=== PATIENT | male | born 1930 | race Caucasian/White ===

== ENCOUNTER 2016-11-14 16:44 | Inpatient (IN) | payer MEDICARE ==
[~2016-11-14] VITALS: Ht 177.8 cm; Wt 82.6 kg
--- NOTE | 2016-11-14 17:06 | PHYS DOC ---
Adult General Chief Complaint Chief Complaint: LOWER EXTREMITY EDEMA HPI HPI Patient is a 86 year old M who presents with increased shortness of breath and swelling per his PCP Dr. Bullock. Patient was sent in by his PCP for possible CHF exacerbation anasarca. Patient is on oxygen continuously 2 L however he complains of no shortness of breath or chest pain. Patient also denies any increased swelling in the lower extremity bilaterally. Patient has no complaints and does not understand why he is in the emergency room. Pertinent exam findings: Heart 3/6 JENNIFER, irreg- irreg Lungs had decreased breath sounds bilaterally +2 pitting edema lower extremity bilaterally Stage 2-3 decubitus ulcer, 2 lesions one on the left and right buttocks approximately quarter in size for age ED course: Patient was seen and examined emergency room CBC, CMP, BMP, EKG, chest x-ray were ordered 1723: EKG shows A. fib rate of 57 no STEMI 180:Discussed CC/HP/PMH with Dr. Bullock and recommends admit and a blood gas and a cardiology consult 182: Updated patient and plan to admit for further evaluation and management. Pertinent results: 1758: Troponin 0.068 BNP 4975 Creatinine 1.5 Chest ray shows CHF MDM: After reviewing the chart, CC/HPI/PMH, physical exam, [lab results], [ radiological results], I believe the patient having acute CHF exacerbation requiring inpatient admission with IV Lasix. I do not believe the patient having a STEMI despite having an elevated troponin which is most likely elevated due to CHF. Review of Systems Review of Systems GEN: Denies fevers, chills, sweats HEENT: Denies blurred vision, sore throat CV: Denies chest pain RESP: Denies shortness of air, cough GI: Denies n/v/d NEURO: Denies confusion, dizziness MSK: Denies weakness, joint pain/swelling Current Medications Current Medications Current Medications Medications (Trade) Dose Ordered Sig/Dinah Start Time Stop Time Status Last Admin Dose Admin Aspirin (Children'S Aspirin) 324 mg 1X ONCE 11/14/16 18:15 11/14/16 18:16 DC 11/14/16 18:13 324 MG Furosemide (Lasix) 80 mg 1X ONCE 11/14/16 18:15 11/14/16 18:16 UNV Morphine Sulfate 4 mg PRN Q2HR PRN 11/14/16 18:15 11/15/16 18:14 UNV Ondansetron HCl (Zofran) 4 mg PRN Q8HRS PRN 11/14/16 18:15 11/15/16 18:14 Allergies Allergies Allergies Coded Allergies Type Severity Reaction Last Updated Verified Penicillins Allergy Intermediate 11/14/16 Yes hydrocodone Allergy Intermediate 11/14/16 Yes Physical Exam Physical Exam GEN.: No apparent distress. Alert and oriented. HEENT: Head is normocephalic, atraumatic NECK: Supple. LUNGS: Decreased breath sounds bilaterally. HEART: irreg-irreg, 3/6 JENNIFER. Peripheral pulses intact ABDOMEN: Soft, nontender. Positive bowel sounds. EXTREMITIES: Without any cyanosis. +2 pitting Edema lower extremity bilaterally NEUROLOGIC: Normal speech, normal tone PSYCHIATRIC: Normal affect, normal mood. SKIN: Stage 2-3 decubitus ulcer, 2 lesions one on the left and right buttocks approximately quarter in size for age Current Patient Data Vital Signs Vital Signs Date Time Temp Pulse Resp B/P (MAP) Pulse Ox O2 Delivery O2 Flow Rate FiO2 11/14/16 16:44 98.1 60 18 122/80 (94) 94 Nasal Cannula 3.0 98.1 Lab Values Laboratory Tests Test 11/14/16 17:05 White Blood Count 5.4 x10^3/uL (4.0-11.0) Red Blood Count 3.11 x10^6/uL (4.30-5.70) L Hemoglobin 9.5 g/dL (13.0-17.5) L Hematocrit 29.2 % (39.0-53.0) L Mean Corpuscular Volume 94 fL (79-100) Mean Corpuscular Hemoglobin 31 pg (25-35) Mean Corpuscular Hemoglobin Concent 33 g/dL (31-37) Red Cell Distribution Width 18.2 % (11.5-14.5) H Platelet Count 220 x10^3/uL (140-400) Neutrophils (%) (Auto) 66 % (31-73) Lymphocytes (%) (Auto) 18 % (24-48) L Monocytes (%) (Auto) 14 % (0-9) H Eosinophils (%) (Auto) 2 % (0-3) Basophils (%) (Auto) 1 % (0-3) Neutrophils # (Auto) 3.6 x10^3uL (1.8-7.7) Lymphocytes # (Auto) 1.0 x10^3/uL (1.0-4.8) Monocytes # (Auto) 0.7 x10^3/uL (0.0-1.1) Eosinophils # (Auto) 0.1 x10^3/uL (0.0-0.7) Basophils # (Auto) 0.0 x10^3/uL (0.0-0.2) Prothrombin Time 14.4 SEC (11.7-14.0) H Prothrombin Time INR 1.2 (0.8-1.1) H Sodium Level 142 mmol/L (136-145) Potassium Level 4.6 mmol/L (3.5-5.1) Chloride Level 100 mmol/L (98-107) Carbon Dioxide Level 43 mmol/L (21-32) H Anion Gap -1 (6-14) L Blood Urea Nitrogen 52 mg/dL (8-26) H Creatinine 1.5 mg/dL (0.7-1.3) H Estimated GFR (Cockcroft-Gault) 44.5 BUN/Creatinine Ratio 35 (6-20) H Glucose Level 161 mg/dL (70-99) H Calcium Level 8.2 mg/dL (8.5-10.1) L Total Bilirubin 0.7 mg/dL (0.2-1.0) Aspartate Amino Transferase (AST) 23 U/L (15-37) Alanine Aminotransferase (ALT) 19 U/L (16-63) Alkaline Phosphatase 93 U/L (46-116) Troponin I Quantitative 0.068 ng/mL (0.000-0.055) TT-Umg-M-Type Natriuretic Peptide 4975 pg/mL (0-449) H Total Protein 6.6 g/dL (6.4-8.2) Albumin 2.2 g/dL (3.4-5.0) L Albumin/Globulin Ratio 0.5 (1.0-1.7) L Lipase 73 U/L (73-393) Laboratory Tests 11/14/16 17:05 Laboratory Tests 11/14/16 17:05 EKG EKG 1723: EKG shows A. fib rate of 57 no STEMI[] Radiology/Procedures Radiology/Procedures [] Course & Med Decision Making Course & Med Decision Making Pertinent Labs and Imaging studies reviewed. (See chart for details) [] Dragon Disclaimer Dragon Disclaimer This electronic medical record was generated, in whole or in part, using a voice recognition dictation system. Departure Departure Impression: Primary Impression: CHF exacerbation Disposition: ADMITTED INPATIENT Admitting Physician: Celeste Bullock Condition: STABLE Problem Qualifiers Primary Impression: CHF exacerbation Congestive heart failure type: unspecified congestive heart failure type Qualified Codes: I50.9 - Heart failure, unspecified GUADALUPE NOGUERA DO Nov 14, 2016 17:06
[2016-11-14 17:12] LABS: BASO % 1 % (0-3); EOS % 2 % (0-3); HEMATOCRIT 29.2 % (39.0-53.0); HEMOGLOBIN 9.5 g/dL (13.0-17.5); LYMPH % 18 % (24-48); MEAN CORPUSCULAR HEMOGLOBIN 31 pg (25-35); MEAN CORPUSCULAR HGB CONC 33 g/dL (31-37); MEAN CORPUSCULAR VOLUME 94 fL (79-100); MONO % 14 % (0-9); NEUT % 66 % (31-73); PLATELET COUNT 220 x10^3/uL (140-400); RED BLOOD COUNT 3.11 x10^6/uL (4.30-5.70); RED CELL DISTRIBUTION WIDTH 18.2 % (11.5-14.5); WHITE BLOOD COUNT 5.4 x10^3/uL (4.0-11.0)
[2016-11-14 17:22] LABS: INR 1.2 (0.8-1.1); PROTHROMBIN TIME PATIENT 14.4 SEC (11.7-14.0)
[2016-11-14 17:27] LABS: CALCIUM 8.2 mg/dL (8.5-10.1); CREATININE 1.5 mg/dL (0.7-1.3); GFR 44.5; POTASSIUM 4.6 mmol/L (3.5-5.1)
[2016-11-14 17:33] LABS: ALBUMIN 2.2 g/dL (3.4-5.0); ALBUMIN/GLOBULIN RATIO 0.5 (1.0-1.7); TOTAL BILIRUBIN 0.7 mg/dL (0.2-1.0); TOTAL PROTEIN 6.6 g/dL (6.4-8.2)
[2016-11-14] MEDS ORDERED: MORPHINE SULFATE 4 MG/ML DISP.SYRIN. IV PRN (18:15)
[2016-11-14] MEDS ORDERED: FUROSEMIDE 40 MG TABLET. PO ONE (18:15)
[2016-11-14] MEDS ORDERED: ASPIRIN CHEWABLE 81 MG TABLET. PO ONE (18:15)
[2016-11-14] MEDS ORDERED: ONDANSETRON PF 4 MG/2 ML VIAL. IV PRN (18:15)
[2016-11-14] MEDS ORDERED: ATOR20TA58 PO (19:59)
[2016-11-14] MEDS ORDERED: [UNRECOGNIZED DRUG - CODE] PO (19:59)
[2016-11-14] MEDS ORDERED: TAMS0.4C2 PO (19:59)
[2016-11-14] MEDS ORDERED: DONE10TA7 PO (19:59)
[2016-11-14] MEDS ORDERED: ACET325T9 PO (19:59)
[2016-11-14] MEDS ORDERED: ASPI81TA44 PO (19:59)
[2016-11-14] MEDS ORDERED: MULT1TAB52 PO (19:59)
[2016-11-14] MEDS ORDERED: CHOL10003 PO (19:59)
[2016-11-14] MEDS ORDERED: POLY17PO29 PO (19:59)
[2016-11-14] MEDS ORDERED: MAGN400O7 PO (19:59)
[2016-11-14] MEDS ORDERED: OXYC5TAB PO (19:59)
[2016-11-14] MEDS ORDERED: ENOX40DI SQ (19:59)
[2016-11-14 20:11] VITALS: BP 138/63
[2016-11-14 23:42] LABS: HCO3 ABG 43 mmol/L (21-28); PH ABG 7.35 (7.35-7.45); PO2 ABG 93 mmHg (65-108); SAT O2 ABG 97 % (92-99)
[2016-11-14 23:45] VITALS: BP 121/44
[2016-11-14 23:46] LABS: FIO2 ABG 32; PCO2 ABG 79 mmHg (35-46)
[2016-11-15] VITALS (7 sets, daily range): BP systolic 105–133; BP diastolic 39–62
--- NOTE | 2016-11-15 03:05 | ACF ---
Admission Forms Criteria HEART FAILURE: COMMON COMPLICATIONS Clinical Indications for Inpatient Care (Place 'X' for any and all applicable criteria): Ongoing inpatient care may be indicated for heart failure with 1 or more of the following (1)(2)(3)(4)(5)(6)(7)(8): [ ]I. New-onset heart failure [ ]II. Acute cardiac ischemia causing or associated with failure [ ]III. Ongoing need for care for primary condition requiring frequent therapy adjustments because of changes in cardiac function (eg, drug dosage changes for drugs that are renally metabolized) [X]IV. Complications of heart failure, including 1 or more of the following: [ ]a) Hemodynamic instability [ ]b) Pericardial effusion [ ]c) Symptomatic pleural effusion [ ]d) Hypoxemia [ ]e) Tachypnea [X]f) Dyspnea [ ]g) Syncope [ ]h) Altered mental status [ ]i) Acute renal insufficiency that is severe (reduction of more than 50% in estimated glomerular filtration rate from baseline) or progressive reduction of more than 25% in estimated glomerular filtration rate from baseline, with creatinine continuing to rise) [ ]j) Debilitating anasarca (eg tissue breakdown with infection, inability to void due to edema) (E) [ ]k) Clinically significant metabolic abnormalities due to heart failure (eg, new-onset metabolic acidosis) Extended stay may be needed until ALL of the following are present (1)(3)(18)(41 )(55) [ ]a) Hemodynamic stability [ ]b) Stable and effective diuretic regimen established (or patient on stable dialysis regimen if in chronic renal failure) [ ]c) Volume status acceptable on oral medication [ ]d) Breathing comfortably at rest [ ]e) Saturation of arterial oxygen greater than 90% or at acceptable baseline [ ]f) Pulmonary edema absent or improved [ ]g) Peripheral or sacral edema absent or improved [ ]h) Renal function stable and manageable at a lower level of care [ ]i) Complications (eg, pleural effusion) resolved or manageable at a lower level of care [ ]g) Patient or caregiver has received written discharge instructions or educational material addressing activity level, diet, discharge medications, follow-up appointment, weight monitoring, and what to do if symptoms worsen.(25)(26) The original [facility] [facility] [employer] content created by [facility] [employer] has been revised. The portions of the content which have been revised are identified through the use of italic text, and [facility] has neither reviewed nor approved the modified material.All other unmodified content is copyright [facility]. Please see references footnoted in the original [facility] edition 2015 Admission Criteria Met?: Yes WARREN ADVIDSON Nov 15, 2016 03:05
[2016-11-15 06:18] LABS: BASO # 0.1 x10^3/uL (0.0-0.2); BASO % 1 % (0-3); EOS % 2 % (0-3); HEMATOCRIT 33.6 % (39.0-53.0); HEMOGLOBIN 10.3 g/dL (13.0-17.5); LYMPH # 1.6 x10^3/uL (1.0-4.8); LYMPH % 22 % (24-48); MEAN CORPUSCULAR HEMOGLOBIN 30 pg (25-35); MEAN CORPUSCULAR HGB CONC 31 g/dL (31-37); MEAN CORPUSCULAR VOLUME 96 fL (79-100); MONO % 11 % (0-9); NEUT % 65 % (31-73); PLATELET COUNT 262 x10^3/uL (140-400); RED CELL DISTRIBUTION WIDTH 18.2 % (11.5-14.5); WHITE BLOOD COUNT 7.3 x10^3/uL (4.0-11.0)
[2016-11-15 06:44] LABS: CALCIUM 8.2 mg/dL (8.5-10.1); CREATININE 1.4 mg/dL (0.7-1.3); GFR 48.2; POTASSIUM 5.2 mmol/L (3.5-5.1)
--- NOTE | 2016-11-15 08:24 | EKG ---
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
--- NOTE | 2016-11-15 09:09 | RAD ---
Portable chest, 11/14/2016: History: Shortness of breath Comparison is made to a study from 10/12/2005. There as been a previous median sternotomy. The heart is mildly enlarged. The pulmonary vascularity is poorly defined. There are moderate streaky bibasilar pulmonary opacities. Similar findings were present on the previous exam. No definite pleural fluid is evident in this AP projection. There is no evidence of pneumothorax. IMPRESSION: 1. Mild cardiomegaly with mild vascular congestion. 2. Moderate streaky bibasilar opacities suggesting recurrent atelectasis/infiltrate, although a component of scarring is likely.
--- NOTE | 2016-11-15 11:23 | PDOC1 ---
History and Physical Date of Admission Date of Admission DATE: 11/15/16 TIME: 10:59 Identification/Chief Complaint Chief Complaint SOB, unable to complete a sentense with generalized anasarca and periorbital edema marked waekness and debility Patient was ambulatory initially however, he is now mostly bed bound chair bound He denied any chest oain Fall with mildley displaced oblique mid right femur fracturetraeted with intramedullary guerline and screw Problems: (1) CHF exacerbation History of Present Illness History of Present Illness The patient was admitted to [facility] as a transfer from [facility] where he was admitted with fall sustaining mildly displaced oblique mid right femoral fracture treated with intramedullary guerline and scew He became progressively weak hypoxic short of breath with increased oxygen requirements He was sent to [facility] ER and was sent back immediately Past Medical History Cardiovascular: AFIB, CAD, CHF, HTN, Hyperlipidemia Pulmonary: COPD CENTRAL NERVOUS SYSTEM: Other (SENILE MACULAR DEGENERATION) Heme/Onc: B12 deficiency Psych: Anxiety, Depression Musculoskeletal: low back pain, Other (multiple compression fractures) Rheumatologic: Other (OP/OA) Renal/: Chronic renal insuff Endocrine: Diabetes, Osteopenia, Osteoporosis Past Surgical History Past Surgical History: Cataract Removal, Other (RIGHT INTERTROCAHANTERIC FRACTURE) Family History Family History: Other (Non contibutory ) Social History Smoke: No ALCOHOL: rare Drugs: None Current Problem List Problem List Problems Medical Problems: (1) CHF exacerbation Status: Acute Atrial fibrillation Type II DM Hyperlipidemia BPH Vitamin B 12 Defeciency OP/OA Multiple vertebral compression fracture Problems: Current Medications Current Medications Current Medications Aspirin (Children'S Aspirin) 324 mg 1X ONCE PO Last administered on 11/14/16 18:13; Start 11/14/16 at 18:15; Stop 11/14/16 at 18:16; Status DC Ondansetron HCl (Zofran) 4 mg PRN Q8HRS PRN IV NAUSEA/VOMITING; Start 11/14/16 at 18:15; Stop 11/15/16 at 18:14 Morphine Sulfate 4 mg PRN Q2HR PRN IV PAIN; Start 11/14/16 at 18:15; Stop at 18:14 Furosemide (Lasix) 80 mg 1X ONCE PO Last administered on 11/14/16 18:37; Start 11/14/16 at 18:15; Stop 11/14/16 at 18:23; Status DC Active Scripts Active Reported Atorvastatin Calcium 20 Mg Tablet 1 Tab PO DAILY Children's Aspirin (Aspirin) 81 Mg Tab.chew 81 Mg PO DAILY Milk Of Magnesia (Magnesium Hydroxide) 400 Mg/5 Ml Oral.susp 400 Mg PO PRN DAILY Miralax (Polyethylene Glycol 3350) 17 Gm Powd.pack 1 Packet PO PRN DAILY Lovenox (Enoxaparin Sodium) 40 Mg/0.4 Ml Disp.syrin 40 Mg SQ DAILY Oxycodone Hcl 5 Mg Tablet 5 Mg PO PRN Q4HRS PRN Tamsulosin Hcl 0.4 Mg Cap.er.24h 1 Cap PO DAILY Multivitamins (Multivitamin) 1 Each Tablet 1 Tab PO DAILY Tylenol (Acetaminophen) 325 Mg Tablet 325-650 Mg PO PRN Q8HRS Donepezil Hcl 10 Mg Tablet 1 Tab PO DAILY Vitamin D3 (Cholecalciferol (Vitamin D3)) 1,000 Unit Tablet 1 Tab PO DAILY Calcium Antacid (Calcium Carbonate) 400 Mg Tab.chew 400 Mg PO TID Allergies Allergies: Coded Allergies: Penicillins (Verified Allergy, Intermediate, 11/14/16) hydrocodone (Verified Allergy, Intermediate, 11/14/16) ROS General: YES: Fatigue Eyes: Yes Decreased vision HEENT: YES: Visual Changes Musculoskeletal: Yes Gait Disturbance, Yes Joint Stiffness, Yes Muscular Weakness Neurological: Yes Impaired Coord/balance Physical Exam General: Alert, Oriented X3 HEENT: Atraumatic, PERRLA Lungs: Other (decreased chest expansion and air entry no crepitations or rhonchi) Heart: S1S2, no rubs, irregularly irregular Breasts: Not examined Abdomen: Normal bowel sounds, Soft, No tenderness, No hepatosplenomegaly, No masses Male Genitals Exam: normal genitalia Rectal Exam: not examined Extremities: No clubbing, No cyanosis, Other (marked bilateral lower extrmity edema) Vitals Vitals Vital Signs Date Time Temp Pulse Resp B/P (MAP) Pulse Ox O2 Delivery O2 Flow Rate FiO2 11/15/16 08:03 98.4 98.4 11/15/16 08:00 Nasal Cannula 3.0 11/15/16 07:00 54 16 119/49 (72) 100 Labs Labs Laboratory Tests Test 11/14/16 17:05 11/14/16 23:40 11/15/16 00:20 11/15/16 06:05 White Blood Count 5.4 x10^3/uL (4.0-11.0) 7.3 x10^3/uL (4.0-11.0) Red Blood Count 3.11 x10^6/uL (4.30-5.70) 3.50 x10^6/uL (4.30-5.70) Hemoglobin 9.5 g/dL (13.0-17.5) 10.3 g/dL (13.0-17.5) Hematocrit 29.2 % (39.0-53.0) 33.6 % (39.0-53.0) Mean Corpuscular Volume 94 fL (79-100) 96 fL (79-100) Mean Corpuscular Hemoglobin 31 pg (25-35) 30 pg (25-35) Mean Corpuscular Hemoglobin Concent 33 g/dL (31-37) 31 g/dL (31-37) Red Cell Distribution Width 18.2 % (11.5-14.5) 18.2 % (11.5-14.5) Platelet Count 220 x10^3/uL (140-400) 262 x10^3/uL (140-400) Neutrophils (%) (Auto) 66 % (31-73) 65 % (31-73) Lymphocytes (%) (Auto) 18 % (24-48) 22 % (24-48) Monocytes (%) (Auto) 14 % (0-9) 11 % (0-9) Eosinophils (%) (Auto) 2 % (0-3) 2 % (0-3) Basophils (%) (Auto) 1 % (0-3) 1 % (0-3) Neutrophils # (Auto) 3.6 x10^3uL (1.8-7.7) 4.8 x10^3uL (1.8-7.7) Lymphocytes # (Auto) 1.0 x10^3/uL (1.0-4.8) 1.6 x10^3/uL (1.0-4.8) Monocytes # (Auto) 0.7 x10^3/uL (0.0-1.1) 0.8 x10^3/uL (0.0-1.1) Eosinophils # (Auto) 0.1 x10^3/uL (0.0-0.7) 0.1 x10^3/uL (0.0-0.7) Basophils # (Auto) 0.0 x10^3/uL (0.0-0.2) 0.1 x10^3/uL (0.0-0.2) Prothrombin Time 14.4 SEC (11.7-14.0) Prothromb Time International Ratio 1.2 (0.8-1.1) Sodium Level 142 mmol/L (136-145) 143 mmol/L (136-145) Potassium Level 4.6 mmol/L (3.5-5.1) 5.2 mmol/L (3.5-5.1) Chloride Level 100 mmol/L (98-107) 101 mmol/L (98-107) Carbon Dioxide Level 43 mmol/L (21-32) 41 mmol/L (21-32) Anion Gap -1 (6-14) 1 (6-14) Blood Urea Nitrogen 52 mg/dL (8-26) 51 mg/dL (8-26) Creatinine 1.5 mg/dL (0.7-1.3) 1.4 mg/dL (0.7-1.3) Estimated GFR (Cockcroft-Gault) 44.5 48.2 BUN/Creatinine Ratio 35 (6-20) Glucose Level 161 mg/dL (70-99) 115 mg/dL (70-99) Calcium Level 8.2 mg/dL (8.5-10.1) 8.2 mg/dL (8.5-10.1) Total Bilirubin 0.7 mg/dL (0.2-1.0) Aspartate Amino Transf (AST/SGOT) 23 U/L (15-37) Alanine Aminotransferase (ALT/SGPT) 19 U/L (16-63) Alkaline Phosphatase 93 U/L (46-116) Troponin I Quantitative 0.068 ng/mL (0.000-0.055) 0.067 ng/mL (0.000-0.055) 0.076 ng/mL (0.000-0.055) PG-Zag-D-Type Natriuretic Peptide 4975 pg/mL (0-449) Total Protein 6.6 g/dL (6.4-8.2) Albumin 2.2 g/dL (3.4-5.0) Albumin/Globulin Ratio 0.5 (1.0-1.7) Lipase 73 U/L (73-393) O2 Saturation 97 % (92-99) Arterial Blood pH 7.35 (7.35-7.45) Arterial Blood pCO2 at Patient Temp 79 mmHg (35-46) Arterial Blood pO2 at Patient Temp 93 mmHg (65-108) Arterial Blood HCO3 43 mmol/L (21-28) Arterial Blood Base Excess 14 mmol/L (-3-3) FiO2 32 Laboratory Tests Test 11/14/16 17:05 11/14/16 23:40 11/15/16 00:20 11/15/16 06:05 White Blood Count 5.4 x10^3/uL (4.0-11.0) 7.3 x10^3/uL (4.0-11.0) Red Blood Count 3.11 x10^6/uL (4.30-5.70) 3.50 x10^6/uL (4.30-5.70) Hemoglobin 9.5 g/dL (13.0-17.5) 10.3 g/dL (13.0-17.5) Hematocrit 29.2 % (39.0-53.0) 33.6 % (39.0-53.0) Mean Corpuscular Volume 94 fL (79-100) 96 fL (79-100) Mean Corpuscular Hemoglobin 31 pg (25-35) 30 pg (25-35) Mean Corpuscular Hemoglobin Concent 33 g/dL (31-37) 31 g/dL (31-37) Red Cell Distribution Width 18.2 % (11.5-14.5) 18.2 % (11.5-14.5) Platelet Count 220 x10^3/uL (140-400) 262 x10^3/uL (140-400) Neutrophils (%) (Auto) 66 % (31-73) 65 % (31-73) Lymphocytes (%) (Auto) 18 % (24-48) 22 % (24-48) Monocytes (%) (Auto) 14 % (0-9) 11 % (0-9) Eosinophils (%) (Auto) 2 % (0-3) 2 % (0-3) Basophils (%) (Auto) 1 % (0-3) 1 % (0-3) Neutrophils # (Auto) 3.6 x10^3uL (1.8-7.7) 4.8 x10^3uL (1.8-7.7) Lymphocytes # (Auto) 1.0 x10^3/uL (1.0-4.8) 1.6 x10^3/uL (1.0-4.8) Monocytes # (Auto) 0.7 x10^3/uL (0.0-1.1) 0.8 x10^3/uL (0.0-1.1) Eosinophils # (Auto) 0.1 x10^3/uL (0.0-0.7) 0.1 x10^3/uL (0.0-0.7) Basophils # (Auto) 0.0 x10^3/uL (0.0-0.2) 0.1 x10^3/uL (0.0-0.2) Prothrombin Time 14.4 SEC (11.7-14.0) Prothromb Time International Ratio 1.2 (0.8-1.1) Sodium Level 142 mmol/L (136-145) 143 mmol/L (136-145) Potassium Level 4.6 mmol/L (3.5-5.1) 5.2 mmol/L (3.5-5.1) Chloride Level 100 mmol/L (98-107) 101 mmol/L (98-107) Carbon Dioxide Level 43 mmol/L (21-32) 41 mmol/L (21-32) Anion Gap -1 (6-14) 1 (6-14) Blood Urea Nitrogen 52 mg/dL (8-26) 51 mg/dL (8-26) Creatinine 1.5 mg/dL (0.7-1.3) 1.4 mg/dL (0.7-1.3) Estimated GFR (Cockcroft-Gault) 44.5 48.2 BUN/Creatinine Ratio 35 (6-20) Glucose Level 161 mg/dL (70-99) 115 mg/dL (70-99) Calcium Level 8.2 mg/dL (8.5-10.1) 8.2 mg/dL (8.5-10.1) Total Bilirubin 0.7 mg/dL (0.2-1.0) Aspartate Amino Transf (AST/SGOT) 23 U/L (15-37) Alanine Aminotransferase (ALT/SGPT) 19 U/L (16-63) Alkaline Phosphatase 93 U/L (46-116) Troponin I Quantitative 0.068 ng/mL (0.000-0.055) 0.067 ng/mL (0.000-0.055) 0.076 ng/mL (0.000-0.055) GA-Zte-S-Type Natriuretic Peptide 4975 pg/mL (0-449) Total Protein 6.6 g/dL (6.4-8.2) Albumin 2.2 g/dL (3.4-5.0) Albumin/Globulin Ratio 0.5 (1.0-1.7) Lipase 73 U/L (73-393) O2 Saturation 97 % (92-99) Arterial Blood pH 7.35 (7.35-7.45) Arterial Blood pCO2 at Patient Temp 79 mmHg (35-46) Arterial Blood pO2 at Patient Temp 93 mmHg (65-108) Arterial Blood HCO3 43 mmol/L (21-28) Arterial Blood Base Excess 14 mmol/L (-3-3) FiO2 32 VTE Prophylaxis Ordered VTE Prophylaxis Devices: Yes (Sequential compression devices) VTE Pharmacological Prophylaxi: Yes (sequential compression devices) Assessment/Plan Assessment/Plan CHF with marked bilateral lower extremity edema and generalized anasarca and increasing oxygen requirement Elevated troponin Atrial fibrillation with controlled heart rate CAD but no documented NC at [facility] from the medical records from [facility] Type II DM HLD BPH A/C KI Chronic compensated respiratory failure Problem Qualifiers (1) CHF exacerbation: Congestive heart failure type: unspecified congestive heart failure type Qualified Codes: I50.9 - Heart failure, unspecified BRAXTON SMITH MD Nov 15, 2016 11:23
[2016-11-15] MEDS ORDERED: oxyCODONE IR 5 MG TABLET PO PRN (11:45)
[2016-11-15] MEDS ORDERED: ACETAMINOPHEN 325 MG TABLET. PO PRN (11:45)
[2016-11-15] MEDS ORDERED: DEXTROSE 50% 25 GM / 50ML DISP.SYRIN. IV PRN (11:45)
[2016-11-15] MEDS ORDERED: POLYETHYLENE GLYCOL 3350 17 GM PACKET. PO PRN (11:45)
--- NOTE | 2016-11-15 11:45 | PDOC ---
PROGRESS NOTES Subjective Subjective slightly better this morning periorbital and bilateral lower extremity edema is improving Has one episode of non sustained V Tach during which he is asymptomatic Objective Objective Vital Signs Date Time Temp Pulse Resp B/P (MAP) Pulse Ox O2 Delivery O2 Flow Rate FiO2 11/15/16 08:03 98.4 98.4 11/15/16 08:00 Nasal Cannula 3.0 11/15/16 07:00 54 16 119/49 (72) 100 Intake and Output 11/15/16 07:00 Intake Total 120 ml Output Total 400 ml Balance -280 ml Intake Oral 120 ml Output Urine Total 400 ml Physical Exam Abdomen: Normal bowel sounds, Soft, No tenderness, No masses Heart: Gallops, Rubs, Other (irregualrly irregular heart rate) Extremities: No clubbing, No cyanosis, Other (bilateral L E Edema) HEENT: Atraumatic, PERRLA, EOMI, Mucous membr. moist/pink MUSCULOSKELETAL: Other (marked muscle weakness ) Neck: Supple, No JVD, No thyromegaly Neuro: Other (mostly bed bound wheelchair bound) Psych/Mental Status: Other (mild cognitive impairment) Skin: No rashes, Other (multiple wound s on both buttocks and legs) Assessment Assessment Problems Medical Problems: (1) CHF exacerbation Status: Acute Comment Review of Relevant I have reviewed the following items harman (where applicable) has been applied. Labs Laboratory Tests Test 11/14/16 17:05 11/14/16 23:40 11/15/16 00:20 11/15/16 06:05 White Blood Count 5.4 x10^3/uL (4.0-11.0) 7.3 x10^3/uL (4.0-11.0) Red Blood Count 3.11 x10^6/uL (4.30-5.70) 3.50 x10^6/uL (4.30-5.70) Hemoglobin 9.5 g/dL (13.0-17.5) 10.3 g/dL (13.0-17.5) Hematocrit 29.2 % (39.0-53.0) 33.6 % (39.0-53.0) Mean Corpuscular Volume 94 fL (79-100) 96 fL (79-100) Mean Corpuscular Hemoglobin 31 pg (25-35) 30 pg (25-35) Mean Corpuscular Hemoglobin Concent 33 g/dL (31-37) 31 g/dL (31-37) Red Cell Distribution Width 18.2 % (11.5-14.5) 18.2 % (11.5-14.5) Platelet Count 220 x10^3/uL (140-400) 262 x10^3/uL (140-400) Neutrophils (%) (Auto) 66 % (31-73) 65 % (31-73) Lymphocytes (%) (Auto) 18 % (24-48) 22 % (24-48) Monocytes (%) (Auto) 14 % (0-9) 11 % (0-9) Eosinophils (%) (Auto) 2 % (0-3) 2 % (0-3) Basophils (%) (Auto) 1 % (0-3) 1 % (0-3) Neutrophils # (Auto) 3.6 x10^3uL (1.8-7.7) 4.8 x10^3uL (1.8-7.7) Lymphocytes # (Auto) 1.0 x10^3/uL (1.0-4.8) 1.6 x10^3/uL (1.0-4.8) Monocytes # (Auto) 0.7 x10^3/uL (0.0-1.1) 0.8 x10^3/uL (0.0-1.1) Eosinophils # (Auto) 0.1 x10^3/uL (0.0-0.7) 0.1 x10^3/uL (0.0-0.7) Basophils # (Auto) 0.0 x10^3/uL (0.0-0.2) 0.1 x10^3/uL (0.0-0.2) Prothrombin Time 14.4 SEC (11.7-14.0) Prothromb Time International Ratio 1.2 (0.8-1.1) Sodium Level 142 mmol/L (136-145) 143 mmol/L (136-145) Potassium Level 4.6 mmol/L (3.5-5.1) 5.2 mmol/L (3.5-5.1) Chloride Level 100 mmol/L (98-107) 101 mmol/L (98-107) Carbon Dioxide Level 43 mmol/L (21-32) 41 mmol/L (21-32) Anion Gap -1 (6-14) 1 (6-14) Blood Urea Nitrogen 52 mg/dL (8-26) 51 mg/dL (8-26) Creatinine 1.5 mg/dL (0.7-1.3) 1.4 mg/dL (0.7-1.3) Estimated GFR (Cockcroft-Gault) 44.5 48.2 BUN/Creatinine Ratio 35 (6-20) Glucose Level 161 mg/dL (70-99) 115 mg/dL (70-99) Calcium Level 8.2 mg/dL (8.5-10.1) 8.2 mg/dL (8.5-10.1) Total Bilirubin 0.7 mg/dL (0.2-1.0) Aspartate Amino Transf (AST/SGOT) 23 U/L (15-37) Alanine Aminotransferase (ALT/SGPT) 19 U/L (16-63) Alkaline Phosphatase 93 U/L (46-116) Troponin I Quantitative 0.068 ng/mL (0.000-0.055) 0.067 ng/mL (0.000-0.055) 0.076 ng/mL (0.000-0.055) IV-Twv-H-Type Natriuretic Peptide 4975 pg/mL (0-449) Total Protein 6.6 g/dL (6.4-8.2) Albumin 2.2 g/dL (3.4-5.0) Albumin/Globulin Ratio 0.5 (1.0-1.7) Lipase 73 U/L (73-393) O2 Saturation 97 % (92-99) Arterial Blood pH 7.35 (7.35-7.45) Arterial Blood pCO2 at Patient Temp 79 mmHg (35-46) Arterial Blood pO2 at Patient Temp 93 mmHg (65-108) Arterial Blood HCO3 43 mmol/L (21-28) Arterial Blood Base Excess 14 mmol/L (-3-3) FiO2 32 Laboratory Tests Test 11/14/16 17:05 11/14/16 23:40 11/15/16 00:20 11/15/16 06:05 White Blood Count 5.4 x10^3/uL (4.0-11.0) 7.3 x10^3/uL (4.0-11.0) Red Blood Count 3.11 x10^6/uL (4.30-5.70) 3.50 x10^6/uL (4.30-5.70) Hemoglobin 9.5 g/dL (13.0-17.5) 10.3 g/dL (13.0-17.5) Hematocrit 29.2 % (39.0-53.0) 33.6 % (39.0-53.0) Mean Corpuscular Volume 94 fL (79-100) 96 fL (79-100) Mean Corpuscular Hemoglobin 31 pg (25-35) 30 pg (25-35) Mean Corpuscular Hemoglobin Concent 33 g/dL (31-37) 31 g/dL (31-37) Red Cell Distribution Width 18.2 % (11.5-14.5) 18.2 % (11.5-14.5) Platelet Count 220 x10^3/uL (140-400) 262 x10^3/uL (140-400) Neutrophils (%) (Auto) 66 % (31-73) 65 % (31-73) Lymphocytes (%) (Auto) 18 % (24-48) 22 % (24-48) Monocytes (%) (Auto) 14 % (0-9) 11 % (0-9) Eosinophils (%) (Auto) 2 % (0-3) 2 % (0-3) Basophils (%) (Auto) 1 % (0-3) 1 % (0-3) Neutrophils # (Auto) 3.6 x10^3uL (1.8-7.7) 4.8 x10^3uL (1.8-7.7) Lymphocytes # (Auto) 1.0 x10^3/uL (1.0-4.8) 1.6 x10^3/uL (1.0-4.8) Monocytes # (Auto) 0.7 x10^3/uL (0.0-1.1) 0.8 x10^3/uL (0.0-1.1) Eosinophils # (Auto) 0.1 x10^3/uL (0.0-0.7) 0.1 x10^3/uL (0.0-0.7) Basophils # (Auto) 0.0 x10^3/uL (0.0-0.2) 0.1 x10^3/uL (0.0-0.2) Prothrombin Time 14.4 SEC (11.7-14.0) Prothromb Time International Ratio 1.2 (0.8-1.1) Sodium Level 142 mmol/L (136-145) 143 mmol/L (136-145) Potassium Level 4.6 mmol/L (3.5-5.1) 5.2 mmol/L (3.5-5.1) Chloride Level 100 mmol/L (98-107) 101 mmol/L (98-107) Carbon Dioxide Level 43 mmol/L (21-32) 41 mmol/L (21-32) Anion Gap -1 (6-14) 1 (6-14) Blood Urea Nitrogen 52 mg/dL (8-26) 51 mg/dL (8-26) Creatinine 1.5 mg/dL (0.7-1.3) 1.4 mg/dL (0.7-1.3) Estimated GFR (Cockcroft-Gault) 44.5 48.2 BUN/Creatinine Ratio 35 (6-20) Glucose Level 161 mg/dL (70-99) 115 mg/dL (70-99) Calcium Level 8.2 mg/dL (8.5-10.1) 8.2 mg/dL (8.5-10.1) Total Bilirubin 0.7 mg/dL (0.2-1.0) Aspartate Amino Transf (AST/SGOT) 23 U/L (15-37) Alanine Aminotransferase (ALT/SGPT) 19 U/L (16-63) Alkaline Phosphatase 93 U/L (46-116) Troponin I Quantitative 0.068 ng/mL (0.000-0.055) 0.067 ng/mL (0.000-0.055) 0.076 ng/mL (0.000-0.055) RY-Ttj-Y-Type Natriuretic Peptide 4975 pg/mL (0-449) Total Protein 6.6 g/dL (6.4-8.2) Albumin 2.2 g/dL (3.4-5.0) Albumin/Globulin Ratio 0.5 (1.0-1.7) Lipase 73 U/L (73-393) O2 Saturation 97 % (92-99) Arterial Blood pH 7.35 (7.35-7.45) Arterial Blood pCO2 at Patient Temp 79 mmHg (35-46) Arterial Blood pO2 at Patient Temp 93 mmHg (65-108) Arterial Blood HCO3 43 mmol/L (21-28) Arterial Blood Base Excess 14 mmol/L (-3-3) FiO2 32 Medications Current Medications Aspirin (Children'S Aspirin) 324 mg 1X ONCE PO Last administered on 11/14/16 18:13; Start 11/14/16 at 18:15; Stop 11/14/16 at 18:16; Status DC Ondansetron HCl (Zofran) 4 mg PRN Q8HRS PRN IV NAUSEA/VOMITING; Start 11/14/16 at 18:15; Stop 11/15/16 at 18:14 Morphine Sulfate 4 mg PRN Q2HR PRN IV PAIN; Start 11/14/16 at 18:15; Stop at 18:14 Furosemide (Lasix) 80 mg 1X ONCE PO Last administered on 11/14/16 18:37; Start 11/14/16 at 18:15; Stop 11/14/16 at 18:23; Status DC Active Scripts Active Reported Atorvastatin Calcium 20 Mg Tablet 1 Tab PO DAILY Children's Aspirin (Aspirin) 81 Mg Tab.chew 81 Mg PO DAILY Milk Of Magnesia (Magnesium Hydroxide) 400 Mg/5 Ml Oral.susp 400 Mg PO PRN DAILY Miralax (Polyethylene Glycol 3350) 17 Gm Powd.pack 1 Packet PO PRN DAILY Lovenox (Enoxaparin Sodium) 40 Mg/0.4 Ml Disp.syrin 40 Mg SQ DAILY Oxycodone Hcl 5 Mg Tablet 5 Mg PO PRN Q4HRS PRN Tamsulosin Hcl 0.4 Mg Cap.er.24h 1 Cap PO DAILY Multivitamins (Multivitamin) 1 Each Tablet 1 Tab PO DAILY Tylenol (Acetaminophen) 325 Mg Tablet 325-650 Mg PO PRN Q8HRS Donepezil Hcl 10 Mg Tablet 1 Tab PO DAILY Vitamin D3 (Cholecalciferol (Vitamin D3)) 1,000 Unit Tablet 1 Tab PO DAILY Calcium Antacid (Calcium Carbonate) 400 Mg Tab.chew 400 Mg PO TID Vitals/I & O Vital Sign - Last 24 Hours 11/14/16 11/14/16 11/14/16 11/14/16 16:44 17:14 17:44 18:14 Temp 98.1 98.1 Pulse 60 54 58 62 Resp 18 14 22 27 B/P (MAP) 122/80 (94) 129/58 (81) 131/59 (83) 130/59 (82) Pulse Ox 94 94 94 95 O2 Delivery Nasal Cannula Nasal Cannula Nasal Cannula Nasal Cannula O2 Flow Rate 3.0 3.0 3.0 3.0 11/14/16 11/14/16 11/14/16 11/14/16 19:10 20:00 20:11 23:45 Temp 98.0 98.1 98.0 98.1 Pulse 64 71 74 Resp 20 26 21 B/P (MAP) 139/58 (85) 138/63 (88) 121/44 (69) Pulse Ox 94 96 94 O2 Delivery Nasal Cannula Nasal Cannula Nasal Cannula Nasal Cannula O2 Flow Rate 3.0 3.0 3.0 3.0 11/15/16 11/15/16 11/15/16 11/15/16 02:45 07:00 08:00 08:03 Temp 97.7 96.2 98.4 97.7 96.2 98.4 Pulse 75 54 Resp 20 16 B/P (MAP) 110/49 (69) 119/49 (72) Pulse Ox 96 100 O2 Delivery Nasal Cannula Nasal Cannula Nasal Cannula O2 Flow Rate 3.0 3.0 3.0 Intake and Output 11/14/16 11/14/16 11/15/16 15:00 23:00 07:00 Intake Total 120 ml 0 ml Output Total 200 ml 200 ml Balance -80 ml -200 ml BRAXTON SMITH MD Nov 15, 2016 11:45
[2016-11-15] MEDS ORDERED: MAGNESIUM HYDROXIDE 2,400 MG/30 ML ORAL.SUSP. PO PRN (12:00)
[2016-11-15] MEDS ORDERED: FUROSEMIDE 40 MG/4 ML VIAL. IVP ONE (12:00)
[2016-11-15] MEDS: TAMSULOSIN 0.4 MG CAP.ER.24H. PO SCH (12:09)
[2016-11-15] MEDS: ASPIRIN CHEWABLE 81 MG TABLET. PO SCH (12:09)
[2016-11-15] MEDS: DONEPEZIL HCL 10 MG TABLET. PO SCH (12:09)
[2016-11-15] MEDS: MULTIVITAMIN with MINERAL TABLET. PO SCH (12:09)
[2016-11-15] MEDS: CHOLECALCIFEROL (VITAMIN D3) 1,000 UNIT TABLET PO SCH (12:09)
[2016-11-15] MEDS: INSULIN ASPART 300 UNITS/3 ML INSULN.PEN SQ SCH ×2 (12:16→16:23)
[2016-11-15] MEDS: CALCIUM CARBONATE 500 MG TAB.CHEW PO SCH ×2 (13:22→20:44)
--- NOTE | 2016-11-15 15:00 | RAD ---
Pelvis with right hip, 11/15/2016: History: Fall The bony structures are demineralized. No pelvic fracture is identified. There is mild spurring at both hip joints. An internal metallic fixation device is present at the right hip transfixing an old healed right hip fracture. No new hip fracture or dislocation is evident. Right femur, 2 views, 11/15/2016: The fixation device at the right hip includes a long intramedullary guerline extending into the distal femur. It traverses an acute appearing spiral fracture of the mid to distal femoral shaft. There is mild distraction of those fracture fragments with mild anterior displacement of the distal fracture fragment. IMPRESSION: 1. Demineralization. 2. Old, healed, internally fixed right hip fracture. 3. Acute appearing, mildly displaced fracture of the mid to distal right femoral shaft which is traversed by the long intramedullary guerline of the femoral fixation device. Correlation with previous femoral radiographs if available would be helpful.
--- NOTE | 2016-11-15 15:01 | PDOC2 ---
CONSULT Date of Consult Date of Consult DATE: 11/15/16 TIME: 14:53 Reason for Consult Reason for Consult: heart failure Referring Physician Referring Physician: Dr. Bullock Identification/Chief Complaint Chief Complaint SOB Problems: Source Source: Chart review History of Present Illness Reason for Visit: The patient is an 86-year-old male with an extensive medical history reports increasing shortness of breath and weakness over the past several days. The patient is unable to give a clear history. But he does deny chest pain. His chest x-ray shows mild vascular congestion. EKG shows no acute ischemic changes. He has recently had a fall resulting with a right femoral fracture which was treated at the [place] with an intramedullary guerline and screw. He has had progressive weakness and fatigue. Past Medical History Cardiovascular: AFIB, CAD, CHF, HTN, Hyperlipidemia Pulmonary: COPD CENTRAL NERVOUS SYSTEM: Other (SENILE MACULAR DEGENERATION) Heme/Onc: B12 deficiency Psych: Anxiety, Depression Musculoskeletal: low back pain, Other (multiple compression fractures) Rheumatologic: Other (OP/OA) Renal/: Chronic renal insuff Endocrine: Diabetes, Osteopenia, Osteoporosis Past Surgical History Past Surgical History: Cataract Removal (fracture repair as above.), Other ( RIGHT INTERTROCAHANTERIC FRACTURE) Family History Family History Unable to obtain family history at this time. Family History: Other (Non contibutory ) Social History No ALCOHOL: rare Drugs: None Current Problem List Problem List Problems Medical Problems: (1) CHF exacerbation Status: Acute Current Medications Current Medications Current Medications Aspirin (Children'S Aspirin) 324 mg 1X ONCE PO Last administered on 11/14/16 18:13; Start 11/14/16 at 18:15; Stop 11/14/16 at 18:16; Status DC Ondansetron HCl (Zofran) 4 mg PRN Q8HRS PRN IV NAUSEA/VOMITING; Start 11/14/16 at 18:15; Stop 11/15/16 at 18:14 Morphine Sulfate 4 mg PRN Q2HR PRN IV PAIN; Start 11/14/16 at 18:15; Stop at 18:14 Furosemide (Lasix) 80 mg 1X ONCE PO Last administered on 11/14/16 18:37; Start 11/14/16 at 18:15; Stop 11/14/16 at 18:23; Status DC Insulin Aspart (NovoLOG) 0-5 UNITS TIDWMEALS SQ Last administered on 11/15/16 12:16; Start 11/15/16 at 12:00 Dextrose (Dextrose 50%-Water Syringe) 12.5 gm PRN Q15MIN PRN IV SEE COMMENTS; Start 11/15/16 at 11:45 Acetaminophen (Tylenol) 650 mg PRN Q4HRS PRN PO PAIN; Start 11/15/16 at 11:45 Aspirin (Children'S Aspirin) 81 mg DAILY PO Last administered on 11/15/16 12:09 ; Start 11/15/16 at 13:00 Atorvastatin Calcium (Lipitor) 20 mg QHS PO ; Start 11/15/16 at 21:00 Vitamin D (Vitamin D3) 1,000 unit DAILY PO Last administered on 11/15/16 12:09 ; Start 11/15/16 at 13:00 Donepezil HCl (Aricept) 10 mg DAILY PO Last administered on 11/15/16 12:09; Start 11/15/16 at 13:00 Enoxaparin Sodium (Lovenox 40mg Syringe) 40 mg DAILY16 SQ ; Start 11/15/16 at 16: 00 Magnesium Hydroxide (Milk Of Magnesia) 2,400 mg PRN DAILY PRN PO CONSTIPATION; Start 11/15/16 at 12:00 Oxycodone HCl (Roxicodone) 5 mg PRN Q4HRS PRN PO PAIN; Start 11/15/16 at 11:45 Polyethylene Glycol (miraLAX PACKET) 17 gm PRN DAILY PRN PO CONSTIPATION; Start 11/15/16 at 11:45 Tamsulosin HCl (Flomax) 0.4 mg DAILY PO Last administered on 11/15/16 12:09; Start 11/15/16 at 13:00 Calcium Carbonate/ Glycine (Tums) 500 mg TID PO ; Start 11/15/16 at 14:00 Multivitamins (Thera M Plus) 1 tab DAILY PO Last administered on 11/15/16 12:09 ; Start 11/15/16 at 13:00 Furosemide (Lasix) 40 mg 1X ONCE IVP Last administered on 11/15/16 12:09; Start 11/15/16 at 12:00; Stop 11/15/16 at 12:01; Status DC Furosemide (Lasix) 40 mg DAILY IVP ; Start 11/16/16 at 09:00 Active Scripts Active Reported Atorvastatin Calcium 20 Mg Tablet 1 Tab PO DAILY Children's Aspirin (Aspirin) 81 Mg Tab.chew 81 Mg PO DAILY Milk Of Magnesia (Magnesium Hydroxide) 400 Mg/5 Ml Oral.susp 400 Mg PO PRN DAILY Miralax (Polyethylene Glycol 3350) 17 Gm Powd.pack 1 Packet PO PRN DAILY Lovenox (Enoxaparin Sodium) 40 Mg/0.4 Ml Disp.syrin 40 Mg SQ DAILY Oxycodone Hcl 5 Mg Tablet 5 Mg PO PRN Q4HRS PRN Tamsulosin Hcl 0.4 Mg Cap.er.24h 1 Cap PO DAILY Multivitamins (Multivitamin) 1 Each Tablet 1 Tab PO DAILY Tylenol (Acetaminophen) 325 Mg Tablet 325-650 Mg PO PRN Q8HRS Donepezil Hcl 10 Mg Tablet 1 Tab PO DAILY Vitamin D3 (Cholecalciferol (Vitamin D3)) 1,000 Unit Tablet 1 Tab PO DAILY Calcium Antacid (Calcium Carbonate) 400 Mg Tab.chew 400 Mg PO TID Allergies Allergies: Coded Allergies: Penicillins (Verified Allergy, Intermediate, 11/14/16) hydrocodone (Verified Allergy, Intermediate, 11/14/16) ROS General: YES: Fatigue Respiratory: YES: Shortness of breath, SOB with excertion Physical Exam General: mild distress Lungs: Other (decreased breath sounds bilaterally.) Heart: Other (irregularly irregular.) Abdomen: Normal bowel sounds Vitals VITALS Vital Signs Date Time Temp Pulse Resp B/P (MAP) Pulse Ox O2 Delivery O2 Flow Rate FiO2 11/15/16 12:17 60 18 131/60 (83) 98 Nasal Cannula 3.0 11/15/16 11:00 98.3 98.3 Labs Labs Laboratory Tests Test 11/14/16 17:05 11/14/16 23:40 11/15/16 00:20 11/15/16 06:05 White Blood Count 5.4 x10^3/uL (4.0-11.0) 7.3 x10^3/uL (4.0-11.0) Red Blood Count 3.11 x10^6/uL (4.30-5.70) 3.50 x10^6/uL (4.30-5.70) Hemoglobin 9.5 g/dL (13.0-17.5) 10.3 g/dL (13.0-17.5) Hematocrit 29.2 % (39.0-53.0) 33.6 % (39.0-53.0) Mean Corpuscular Volume 94 fL (79-100) 96 fL (79-100) Mean Corpuscular Hemoglobin 31 pg (25-35) 30 pg (25-35) Mean Corpuscular Hemoglobin Concent 33 g/dL (31-37) 31 g/dL (31-37) Red Cell Distribution Width 18.2 % (11.5-14.5) 18.2 % (11.5-14.5) Platelet Count 220 x10^3/uL (140-400) 262 x10^3/uL (140-400) Neutrophils (%) (Auto) 66 % (31-73) 65 % (31-73) Lymphocytes (%) (Auto) 18 % (24-48) 22 % (24-48) Monocytes (%) (Auto) 14 % (0-9) 11 % (0-9) Eosinophils (%) (Auto) 2 % (0-3) 2 % (0-3) Basophils (%) (Auto) 1 % (0-3) 1 % (0-3) Neutrophils # (Auto) 3.6 x10^3uL (1.8-7.7) 4.8 x10^3uL (1.8-7.7) Lymphocytes # (Auto) 1.0 x10^3/uL (1.0-4.8) 1.6 x10^3/uL (1.0-4.8) Monocytes # (Auto) 0.7 x10^3/uL (0.0-1.1) 0.8 x10^3/uL (0.0-1.1) Eosinophils # (Auto) 0.1 x10^3/uL (0.0-0.7) 0.1 x10^3/uL (0.0-0.7) Basophils # (Auto) 0.0 x10^3/uL (0.0-0.2) 0.1 x10^3/uL (0.0-0.2) Prothrombin Time 14.4 SEC (11.7-14.0) Prothromb Time International Ratio 1.2 (0.8-1.1) Sodium Level 142 mmol/L (136-145) 143 mmol/L (136-145) Potassium Level 4.6 mmol/L (3.5-5.1) 5.2 mmol/L (3.5-5.1) Chloride Level 100 mmol/L (98-107) 101 mmol/L (98-107) Carbon Dioxide Level 43 mmol/L (21-32) 41 mmol/L (21-32) Anion Gap -1 (6-14) 1 (6-14) Blood Urea Nitrogen 52 mg/dL (8-26) 51 mg/dL (8-26) Creatinine 1.5 mg/dL (0.7-1.3) 1.4 mg/dL (0.7-1.3) Estimated GFR (Cockcroft-Gault) 44.5 48.2 BUN/Creatinine Ratio 35 (6-20) Glucose Level 161 mg/dL (70-99) 115 mg/dL (70-99) Calcium Level 8.2 mg/dL (8.5-10.1) 8.2 mg/dL (8.5-10.1) Total Bilirubin 0.7 mg/dL (0.2-1.0) Aspartate Amino Transf (AST/SGOT) 23 U/L (15-37) Alanine Aminotransferase (ALT/SGPT) 19 U/L (16-63) Alkaline Phosphatase 93 U/L (46-116) Troponin I Quantitative 0.068 ng/mL (0.000-0.055) 0.067 ng/mL (0.000-0.055) 0.076 ng/mL (0.000-0.055) CR-Qcu-B-Type Natriuretic Peptide 4975 pg/mL (0-449) Total Protein 6.6 g/dL (6.4-8.2) Albumin 2.2 g/dL (3.4-5.0) Albumin/Globulin Ratio 0.5 (1.0-1.7) Lipase 73 U/L (73-393) O2 Saturation 97 % (92-99) Arterial Blood pH 7.35 (7.35-7.45) Arterial Blood pCO2 at Patient Temp 79 mmHg (35-46) Arterial Blood pO2 at Patient Temp 93 mmHg (65-108) Arterial Blood HCO3 43 mmol/L (21-28) Arterial Blood Base Excess 14 mmol/L (-3-3) FiO2 32 Magnesium Level 2.2 mg/dL (1.8-2.4) Test 11/15/16 11:37 Glucose (Fingerstick) 205 mg/dL (70-99) Laboratory Tests Test 11/14/16 17:05 11/14/16 23:40 11/15/16 00:20 11/15/16 06:05 White Blood Count 5.4 x10^3/uL (4.0-11.0) 7.3 x10^3/uL (4.0-11.0) Red Blood Count 3.11 x10^6/uL (4.30-5.70) 3.50 x10^6/uL (4.30-5.70) Hemoglobin 9.5 g/dL (13.0-17.5) 10.3 g/dL (13.0-17.5) Hematocrit 29.2 % (39.0-53.0) 33.6 % (39.0-53.0) Mean Corpuscular Volume 94 fL (79-100) 96 fL (79-100) Mean Corpuscular Hemoglobin 31 pg (25-35) 30 pg (25-35) Mean Corpuscular Hemoglobin Concent 33 g/dL (31-37) 31 g/dL (31-37) Red Cell Distribution Width 18.2 % (11.5-14.5) 18.2 % (11.5-14.5) Platelet Count 220 x10^3/uL (140-400) 262 x10^3/uL (140-400) Neutrophils (%) (Auto) 66 % (31-73) 65 % (31-73) Lymphocytes (%) (Auto) 18 % (24-48) 22 % (24-48) Monocytes (%) (Auto) 14 % (0-9) 11 % (0-9) Eosinophils (%) (Auto) 2 % (0-3) 2 % (0-3) Basophils (%) (Auto) 1 % (0-3) 1 % (0-3) Neutrophils # (Auto) 3.6 x10^3uL (1.8-7.7) 4.8 x10^3uL (1.8-7.7) Lymphocytes # (Auto) 1.0 x10^3/uL (1.0-4.8) 1.6 x10^3/uL (1.0-4.8) Monocytes # (Auto) 0.7 x10^3/uL (0.0-1.1) 0.8 x10^3/uL (0.0-1.1) Eosinophils # (Auto) 0.1 x10^3/uL (0.0-0.7) 0.1 x10^3/uL (0.0-0.7) Basophils # (Auto) 0.0 x10^3/uL (0.0-0.2) 0.1 x10^3/uL (0.0-0.2) Prothrombin Time 14.4 SEC (11.7-14.0) Prothromb Time International Ratio 1.2 (0.8-1.1) Sodium Level 142 mmol/L (136-145) 143 mmol/L (136-145) Potassium Level 4.6 mmol/L (3.5-5.1) 5.2 mmol/L (3.5-5.1) Chloride Level 100 mmol/L (98-107) 101 mmol/L (98-107) Carbon Dioxide Level 43 mmol/L (21-32) 41 mmol/L (21-32) Anion Gap -1 (6-14) 1 (6-14) Blood Urea Nitrogen 52 mg/dL (8-26) 51 mg/dL (8-26) Creatinine 1.5 mg/dL (0.7-1.3) 1.4 mg/dL (0.7-1.3) Estimated GFR (Cockcroft-Gault) 44.5 48.2 BUN/Creatinine Ratio 35 (6-20) Glucose Level 161 mg/dL (70-99) 115 mg/dL (70-99) Calcium Level 8.2 mg/dL (8.5-10.1) 8.2 mg/dL (8.5-10.1) Total Bilirubin 0.7 mg/dL (0.2-1.0) Aspartate Amino Transf (AST/SGOT) 23 U/L (15-37) Alanine Aminotransferase (ALT/SGPT) 19 U/L (16-63) Alkaline Phosphatase 93 U/L (46-116) Troponin I Quantitative 0.068 ng/mL (0.000-0.055) 0.067 ng/mL (0.000-0.055) 0.076 ng/mL (0.000-0.055) NW-Djx-A-Type Natriuretic Peptide 4975 pg/mL (0-449) Total Protein 6.6 g/dL (6.4-8.2) Albumin 2.2 g/dL (3.4-5.0) Albumin/Globulin Ratio 0.5 (1.0-1.7) Lipase 73 U/L (73-393) O2 Saturation 97 % (92-99) Arterial Blood pH 7.35 (7.35-7.45) Arterial Blood pCO2 at Patient Temp 79 mmHg (35-46) Arterial Blood pO2 at Patient Temp 93 mmHg (65-108) Arterial Blood HCO3 43 mmol/L (21-28) Arterial Blood Base Excess 14 mmol/L (-3-3) FiO2 32 Magnesium Level 2.2 mg/dL (1.8-2.4) Test 11/15/16 11:37 Glucose (Fingerstick) 205 mg/dL (70-99) Images Images Chest x-ray shows mild vascular congestion. Assessment/Plan Assessment/Plan 1. Acute heart failure. Probably systolic. We'll treat with mild diuresis with close monitoring of the patient's lab. We'll check an echocardiogram. 2. History of coronary artery disease. Patient denies any chest pain. He has no acute ischemic changes. Troponins are minimally elevated at 0.6 and 0.7. We'll continue medications and repeat an complete a rule out. 3. Hypertension. Patient's blood pressure is under reasonable control. Will continue on present treatments. 4. History of atrial fibrillation. Rate is under control. We'll continue to monitor. 5. Hyperlipidemia. We'll continue medications and statin and check a lipid lab level in the morning. 6. COPD. Exacerbation. Continue medical treatment. 7. Diabetes mellitus. As per the primary service. Thank you for allowing us to participate in the care of your patient. LIZETTE YBARRA MD Nov 15, 2016 15:01
[2016-11-15] MEDS: ENOXAPARIN 40 MG/0.4 ML SYRINGE. SQ SCH (16:23)
[2016-11-15] MEDS: IPRATRPIUM/ALBUTEROL 0.5/2.5MG 3 ML NEBU. NEB SCH (19:59)
[2016-11-15] MEDS: ATORVASTATIN CALCIUM 20 MG TABLET PO SCH (20:45)
[2016-11-16] VITALS (7 sets, daily range): BP systolic 84–129; BP diastolic 45–60
[2016-11-16] MEDS: IPRATRPIUM/ALBUTEROL 0.5/2.5MG 3 ML NEBU. NEB SCH ×4 (07:59→19:28)
[2016-11-16] MEDS: INSULIN ASPART 300 UNITS/3 ML INSULN.PEN SQ SCH ×3 (08:00→17:00)
[2016-11-16 08:27] LABS: HEMATOCRIT 31.5 % (39.0-53.0); RED BLOOD COUNT 3.3 x10^6/uL (4.30-5.70); RED CELL DISTRIBUTION WIDTH 17.9 % (11.5-14.5); WHITE BLOOD COUNT 7.3 x10^3/uL (4.0-11.0)
[2016-11-16 08:45] LABS: ALBUMIN 2.4 g/dL (3.4-5.0); ALBUMIN/GLOBULIN RATIO 0.5 (1.0-1.7); ALK PHOS 86 U/L (46-116); ALT (SGPT) 16 U/L (16-63); AST (SGOT) 19 U/L (15-37); BLOOD UREA NITROGEN 52 mg/dL (8-26); BUN/CREATININE RATIO 35 (6-20); CALCIUM 8.3 mg/dL (8.5-10.1); CARBON DIOXIDE 45 mmol/L (21-32); CHLORIDE 102 mmol/L (98-107); CREATININE 1.5 mg/dL (0.7-1.3); GFR 44.5; GLUCOSE 126 mg/dL (70-99); POTASSIUM 5.2 mmol/L (3.5-5.1); SODIUM 144 mmol/L (136-145); TOTAL BILIRUBIN 0.8 mg/dL (0.2-1.0); TOTAL PROTEIN 7.1 g/dL (6.4-8.2)
[2016-11-16] MEDS: FUROSEMIDE 40 MG/4 ML VIAL. IVP SCH (08:50)
[2016-11-16] MEDS: CALCIUM CARBONATE 500 MG TAB.CHEW PO SCH ×3 (08:51→21:00)
[2016-11-16] MEDS: ASPIRIN CHEWABLE 81 MG TABLET. PO SCH (09:02)
[2016-11-16] MEDS: CHOLECALCIFEROL (VITAMIN D3) 1,000 UNIT TABLET PO SCH (09:02)
[2016-11-16] MEDS: TAMSULOSIN 0.4 MG CAP.ER.24H. PO SCH (09:02)
[2016-11-16] MEDS: MULTIVITAMIN with MINERAL TABLET. PO SCH (09:02)
[2016-11-16] MEDS: DONEPEZIL HCL 10 MG TABLET. PO SCH (09:02)
--- NOTE | 2016-11-16 11:06 | CARD ---
APPROVED REPORT EXAM: Two-dimensional and M-mode echocardiogram with Doppler and color Doppler. Other Information Quality : Good INDICATION Congestive Heart Failure 2D DIMENSIONS RVDd3.9 (2.9-3.5cm)Left Atrium(2D)5.4 (1.6-4.0cm) IVSd1.1 (0.7-1.1cm)Aortic Root(2D)3.6 (2.0-3.7cm) LVDd4.7 (3.9-5.9cm)LVOT Diameter2.2 (1.8-2.4cm) PWd1.4 (0.7-1.1cm)LVDs3.2 (2.5-4.0cm) FS (%) 32.9 %SV64.2 ml LVEF(%)61.4 (>50%) Aortic Valve AoV Peak Judson.276.7cm/sAoV VTI53.7cm AO Peak GR.30.6mmHgLVOT VTI 21.34cm AO Mean GR.16mmHgAVA (VTI)1.50cm2 Mitral Valve MV E Weksxzxl321.9cm/sMV E Peak Gr.13mmHg MV DECEL [id number] A Mbaarbft886.8cm/s MV E Mean Gr.5mmHgE/A Ratio1.2 TDI Lateral E' P. V6.95cm/sMedial E' P. V7.92cm/s E/Lateral E'24.7E/Medial E'21.7 Tricuspid Valve TR P. Eejhmhuc106py/sRAP [id number] TR Peak Gr.31poUxFCGF10kgZs LEFT VENTRICLE The left ventricle is normal size. There is normal left ventricular wall thickness. The left ventricu lar systolic function is normal and the ejection fraction is within normal range. The Ejection Fracti on is 60-65%. There is a flattened septum consistent with right ventricle volume and pressure overloa d. Transmitral Doppler flow pattern is Grade II-pseudonormal filling dynamics. RIGHT VENTRICLE The right ventricle is mildly dilated. RV Systolic function is mildly reduced. ATRIA The left atrium is severely dilated. The right atrium is mildly dilated. The interatrial septum is in tact with no evidence for an atrial septal defect or patent foramen ovale as noted on 2-D or Doppler imaging. AORTIC VALVE The aortic valve is heavily calcified and displays decreased opening. Doppler and Color Flow revealed no significant aortic regurgitation. Calculated aortic valve area is 1.5 cm2 with maximum pressure g radient of 31 mmHg and mean pressure gradient of 16 mmHg. Doppler and color-flow analysis revealed mi ld aortic stenosis. MITRAL VALVE The mitral valve is moderately calcified and displays decreased opening. There is no evidence of mitr al valve prolapse. Calculated mitral valve area is 2.2 cm2 with maximum pressure gradient of 13 mmHg and mean pressure gradient of 5 mmHg. There is mild mitral valve stenosis. Doppler and Color-flow rev ealed trace to mild mitral regurgitation. TRICUSPID VALVE The tricuspid valve is normal in structure and function. Doppler and Color Flow revealed mild tricusp id regurgitation. There is severe pulmonary hypertension. The PA pressure was estimated at 92 mmHg. T here is no tricuspid valve stenosis. PULMONIC VALVE Doppler and Color Flow revealed mild pulmonic valvular regurgitation. There is no pulmonic valvular s tenosis. GREAT VESSELS The aortic root is normal in size. The ascending aorta is mildly dilated. The IVC is dilated and lisbeth apses <50% with inspiration. PERICARDIAL EFFUSION There is no evidence of significant pericardial effusion. Critical Notification Critical Value: No <Conclusion> The left ventricular systolic function is normal and the ejection fraction is within normal range. Th e Ejection Fraction is 60-65%. There is a flattened septum consistent with right ventricle volume and pressure overload. RV Systolic function is mildly reduced. The left atrium is severely dilated. Doppler and Color Flow revealed mild tricuspid regurgitation. There is severe pulmonary hypertension. The PA pressure was estimated at 92 mmHg.
--- NOTE | 2016-11-16 11:33 | PDOC ---
CARDIO Progress Notes Date and Time Date of Service 11/16/16 Time of Evaluation 1130 Subjective Subjective: No Chest Pain, No shortness of breath, Other (c/o being tired ) Vitals Vitals Vital Signs Date Time Temp Pulse Resp B/P (MAP) Pulse Ox O2 Delivery O2 Flow Rate FiO2 11/16/16 11:10 95 4.0 11/16/16 11:00 98.1 68 20 126/59 (81) Nasal Cannula 98.1 Weight Weight [ ] Input and Output Intake and Output Intake and Output 11/16/16 07:00 Intake Total 2340 ml Output Total 400 ml Balance 1940 ml Intake Oral 2340 ml Output Urine Total 400 ml Laboratory Labs Laboratory Tests Test 11/15/16 11:37 11/15/16 16:22 11/15/16 20:37 11/16/16 08:15 Glucose (Fingerstick) 205 mg/dL (70-99) 134 mg/dL (70-99) 198 mg/dL (70-99) White Blood Count 7.3 x10^3/uL (4.0-11.0) Red Blood Count 3.30 x10^6/uL (4.30-5.70) Hemoglobin 10.0 g/dL (13.0-17.5) Hematocrit 31.5 % (39.0-53.0) Mean Corpuscular Volume 96 fL (79-100) Mean Corpuscular Hemoglobin 30 pg (25-35) Mean Corpuscular Hemoglobin Concent 32 g/dL (31-37) Red Cell Distribution Width 17.9 % (11.5-14.5) Platelet Count 245 x10^3/uL (140-400) Sodium Level 144 mmol/L (136-145) Potassium Level 5.2 mmol/L (3.5-5.1) Chloride Level 102 mmol/L (98-107) Carbon Dioxide Level 45 mmol/L (21-32) Anion Gap -3 (6-14) Blood Urea Nitrogen 52 mg/dL (8-26) Creatinine 1.5 mg/dL (0.7-1.3) Estimated GFR (Cockcroft-Gault) 44.5 BUN/Creatinine Ratio 35 (6-20) Glucose Level 126 mg/dL (70-99) Calcium Level 8.3 mg/dL (8.5-10.1) Magnesium Level 2.1 mg/dL (1.8-2.4) Total Bilirubin 0.8 mg/dL (0.2-1.0) Aspartate Amino Transf (AST/SGOT) 19 U/L (15-37) Alanine Aminotransferase (ALT/SGPT) 16 U/L (16-63) Alkaline Phosphatase 86 U/L (46-116) Total Protein 7.1 g/dL (6.4-8.2) Albumin 2.4 g/dL (3.4-5.0) Albumin/Globulin Ratio 0.5 (1.0-1.7) Vitamin B12 Level 369 pg/mL (247-911) Thyroid Stimulating Hormone (TSH) 1.259 uIU/mL (0.358-3.74) Physical Exam HEENT: Neck Supple W Full Motion Chest: Symmetric LUNGS: Other (bibasilar crackles ) Heart: S1S2, no rubs, irregularly irregular (tele AFIB with controlled ventricular rate ) Abdomen: Soft N/T Extremities: Other (1-2+ bilateral LE edmea and erythema ) Neurology: alert, follow commands, other (drowsy ) Assessment Assessment 1. Acute and chronic diastolic HF; Echo with preserved LV function. 2. H/o CAD; stable, CP free. Trop peak 0.076 3. Hypertension; controlled with meds 4. Acute respiratory failure; pulm consulted. 5. Chronic AFIB; rate controlled without therapy. ASA for stroke prophylaxis 6. Hyperlipidemia; on statin Recommendations check lipids. continue diuresis with monitoring of renal function. Will give extra dose of IV Lasix today. Monitor I and O. Keep I<O Check ABGs Continue supportive care KIMBERLY BALDWIN APRN Nov 16, 2016 11:33
--- NOTE | 2016-11-16 11:38 | PDOC ---
PROGRESS NOTES Subjective Subjective The patient is complaining of shortness of breath No chest pain His echocardiogram showed normal LV Systolic function with an EF OF 60-65% Markedly elevtaed pulmonary hypertension Objective Objective Vital Signs Date Time Temp Pulse Resp B/P (MAP) Pulse Ox O2 Delivery O2 Flow Rate FiO2 11/16/16 11:10 95 4.0 11/16/16 11:00 98.1 68 20 126/59 (81) Nasal Cannula 98.1 Intake and Output 11/16/16 07:00 Intake Total 2340 ml Output Total 400 ml Balance 1940 ml Intake Oral 2340 ml Output Urine Total 400 ml Physical Exam Heart: Regular rate, Normal S1, Normal S2 Extremities: No clubbing, No cyanosis, Other (bilateral lower extremity edema and multiple wound with surrounding edema) General: Cooperative, mild distress HEENT: Atraumatic, PERRLA, EOMI, Mucous membr. moist/pink MUSCULOSKELETAL: No joint tenderness Neck: Supple, No JVD Neuro: Other (lethargic but arousable move both UEhowever, he is mostly bed bound chair bound) Skin: Other (mulrtiple wounds on both lower extremities with surrounding erythema) Diagnosis ANGINA DUE TO: Coronary artery disease, Other (acute on chronic Diatolic CHF) SYNCOPE & COLLAPSE: Bradycardia, Other (SEVERE PULMONARY HYPERTENSION) RESPIRATORY DISEASE: Other (Chronic obstructive pulmonary disease and chronic respiratory failure) COPD: Chronic RESPIRATORY FAILURE: Acute on Chronic HYPERTENSION: Other (well controlled) DIABETES: Type II (Controlled) RENAL FAILURE: Acute, Other (acute on chronic kidney injury) ANEMIA: Chronic diseases, Unable to determine MALNUTRITION: Mild to mod. malnutrtion Assessment Assessment Problems Medical Problems: (1) CHF exacerbation Status: Acute acute on chronic respiratory failure COPD Severe pulmonary hypertension Hypertension Atrial Fibrillation Plan Plan of Care PLan : ABG PULMONARY CONSULT Comment Review of Relevant I have reviewed the following items harman (where applicable) has been applied. Labs Laboratory Tests Test 11/14/16 17:05 11/14/16 23:40 11/15/16 00:20 11/15/16 06:05 White Blood Count 5.4 x10^3/uL (4.0-11.0) 7.3 x10^3/uL (4.0-11.0) Red Blood Count 3.11 x10^6/uL (4.30-5.70) 3.50 x10^6/uL (4.30-5.70) Hemoglobin 9.5 g/dL (13.0-17.5) 10.3 g/dL (13.0-17.5) Hematocrit 29.2 % (39.0-53.0) 33.6 % (39.0-53.0) Mean Corpuscular Volume 94 fL (79-100) 96 fL (79-100) Mean Corpuscular Hemoglobin 31 pg (25-35) 30 pg (25-35) Mean Corpuscular Hemoglobin Concent 33 g/dL (31-37) 31 g/dL (31-37) Red Cell Distribution Width 18.2 % (11.5-14.5) 18.2 % (11.5-14.5) Platelet Count 220 x10^3/uL (140-400) 262 x10^3/uL (140-400) Neutrophils (%) (Auto) 66 % (31-73) 65 % (31-73) Lymphocytes (%) (Auto) 18 % (24-48) 22 % (24-48) Monocytes (%) (Auto) 14 % (0-9) 11 % (0-9) Eosinophils (%) (Auto) 2 % (0-3) 2 % (0-3) Basophils (%) (Auto) 1 % (0-3) 1 % (0-3) Neutrophils # (Auto) 3.6 x10^3uL (1.8-7.7) 4.8 x10^3uL (1.8-7.7) Lymphocytes # (Auto) 1.0 x10^3/uL (1.0-4.8) 1.6 x10^3/uL (1.0-4.8) Monocytes # (Auto) 0.7 x10^3/uL (0.0-1.1) 0.8 x10^3/uL (0.0-1.1) Eosinophils # (Auto) 0.1 x10^3/uL (0.0-0.7) 0.1 x10^3/uL (0.0-0.7) Basophils # (Auto) 0.0 x10^3/uL (0.0-0.2) 0.1 x10^3/uL (0.0-0.2) Prothrombin Time 14.4 SEC (11.7-14.0) Prothromb Time International Ratio 1.2 (0.8-1.1) Sodium Level 142 mmol/L (136-145) 143 mmol/L (136-145) Potassium Level 4.6 mmol/L (3.5-5.1) 5.2 mmol/L (3.5-5.1) Chloride Level 100 mmol/L (98-107) 101 mmol/L (98-107) Carbon Dioxide Level 43 mmol/L (21-32) 41 mmol/L (21-32) Anion Gap -1 (6-14) 1 (6-14) Blood Urea Nitrogen 52 mg/dL (8-26) 51 mg/dL (8-26) Creatinine 1.5 mg/dL (0.7-1.3) 1.4 mg/dL (0.7-1.3) Estimated GFR (Cockcroft-Gault) 44.5 48.2 BUN/Creatinine Ratio 35 (6-20) Glucose Level 161 mg/dL (70-99) 115 mg/dL (70-99) Calcium Level 8.2 mg/dL (8.5-10.1) 8.2 mg/dL (8.5-10.1) Total Bilirubin 0.7 mg/dL (0.2-1.0) Aspartate Amino Transf (AST/SGOT) 23 U/L (15-37) Alanine Aminotransferase (ALT/SGPT) 19 U/L (16-63) Alkaline Phosphatase 93 U/L (46-116) Troponin I Quantitative 0.068 ng/mL (0.000-0.055) 0.067 ng/mL (0.000-0.055) 0.076 ng/mL (0.000-0.055) AO-Jkj-N-Type Natriuretic Peptide 4975 pg/mL (0-449) Total Protein 6.6 g/dL (6.4-8.2) Albumin 2.2 g/dL (3.4-5.0) Albumin/Globulin Ratio 0.5 (1.0-1.7) Lipase 73 U/L (73-393) O2 Saturation 97 % (92-99) Arterial Blood pH 7.35 (7.35-7.45) Arterial Blood pCO2 at Patient Temp 79 mmHg (35-46) Arterial Blood pO2 at Patient Temp 93 mmHg (65-108) Arterial Blood HCO3 43 mmol/L (21-28) Arterial Blood Base Excess 14 mmol/L (-3-3) FiO2 32 Magnesium Level 2.2 mg/dL (1.8-2.4) Test 11/15/16 11:37 11/15/16 16:22 11/15/16 20:37 11/16/16 08:15 Glucose (Fingerstick) 205 mg/dL (70-99) 134 mg/dL (70-99) 198 mg/dL (70-99) White Blood Count 7.3 x10^3/uL (4.0-11.0) Red Blood Count 3.30 x10^6/uL (4.30-5.70) Hemoglobin 10.0 g/dL (13.0-17.5) Hematocrit 31.5 % (39.0-53.0) Mean Corpuscular Volume 96 fL (79-100) Mean Corpuscular Hemoglobin 30 pg (25-35) Mean Corpuscular Hemoglobin Concent 32 g/dL (31-37) Red Cell Distribution Width 17.9 % (11.5-14.5) Platelet Count 245 x10^3/uL (140-400) Sodium Level 144 mmol/L (136-145) Potassium Level 5.2 mmol/L (3.5-5.1) Chloride Level 102 mmol/L (98-107) Carbon Dioxide Level 45 mmol/L (21-32) Anion Gap -3 (6-14) Blood Urea Nitrogen 52 mg/dL (8-26) Creatinine 1.5 mg/dL (0.7-1.3) Estimated GFR (Cockcroft-Gault) 44.5 BUN/Creatinine Ratio 35 (6-20) Glucose Level 126 mg/dL (70-99) Calcium Level 8.3 mg/dL (8.5-10.1) Magnesium Level 2.1 mg/dL (1.8-2.4) Total Bilirubin 0.8 mg/dL (0.2-1.0) Aspartate Amino Transf (AST/SGOT) 19 U/L (15-37) Alanine Aminotransferase (ALT/SGPT) 16 U/L (16-63) Alkaline Phosphatase 86 U/L (46-116) Total Protein 7.1 g/dL (6.4-8.2) Albumin 2.4 g/dL (3.4-5.0) Albumin/Globulin Ratio 0.5 (1.0-1.7) Vitamin B12 Level 369 pg/mL (247-911) Thyroid Stimulating Hormone (TSH) 1.259 uIU/mL (0.358-3.74) Laboratory Tests Test 11/15/16 11:37 11/15/16 16:22 11/15/16 20:37 11/16/16 08:15 Glucose (Fingerstick) 205 mg/dL (70-99) 134 mg/dL (70-99) 198 mg/dL (70-99) White Blood Count 7.3 x10^3/uL (4.0-11.0) Red Blood Count 3.30 x10^6/uL (4.30-5.70) Hemoglobin 10.0 g/dL (13.0-17.5) Hematocrit 31.5 % (39.0-53.0) Mean Corpuscular Volume 96 fL (79-100) Mean Corpuscular Hemoglobin 30 pg (25-35) Mean Corpuscular Hemoglobin Concent 32 g/dL (31-37) Red Cell Distribution Width 17.9 % (11.5-14.5) Platelet Count 245 x10^3/uL (140-400) Sodium Level 144 mmol/L (136-145) Potassium Level 5.2 mmol/L (3.5-5.1) Chloride Level 102 mmol/L (98-107) Carbon Dioxide Level 45 mmol/L (21-32) Anion Gap -3 (6-14) Blood Urea Nitrogen 52 mg/dL (8-26) Creatinine 1.5 mg/dL (0.7-1.3) Estimated GFR (Cockcroft-Gault) 44.5 BUN/Creatinine Ratio 35 (6-20) Glucose Level 126 mg/dL (70-99) Calcium Level 8.3 mg/dL (8.5-10.1) Magnesium Level 2.1 mg/dL (1.8-2.4) Total Bilirubin 0.8 mg/dL (0.2-1.0) Aspartate Amino Transf (AST/SGOT) 19 U/L (15-37) Alanine Aminotransferase (ALT/SGPT) 16 U/L (16-63) Alkaline Phosphatase 86 U/L (46-116) Total Protein 7.1 g/dL (6.4-8.2) Albumin 2.4 g/dL (3.4-5.0) Albumin/Globulin Ratio 0.5 (1.0-1.7) Vitamin B12 Level 369 pg/mL (247-911) Thyroid Stimulating Hormone (TSH) 1.259 uIU/mL (0.358-3.74) Medications Current Medications Aspirin (Children'S Aspirin) 324 mg 1X ONCE PO Last administered on 11/14/16 18:13; Start 11/14/16 at 18:15; Stop 11/14/16 at 18:16; Status DC Ondansetron HCl (Zofran) 4 mg PRN Q8HRS PRN IV NAUSEA/VOMITING; Start 11/14/16 at 18:15; Stop 11/15/16 at 18:14; Status DC Morphine Sulfate 4 mg PRN Q2HR PRN IV PAIN; Start 11/14/16 at 18:15; Stop at 18:14; Status DC Furosemide (Lasix) 80 mg 1X ONCE PO Last administered on 11/14/16 18:37; Start 11/14/16 at 18:15; Stop 11/14/16 at 18:23; Status DC Insulin Aspart (NovoLOG) 0-5 UNITS TIDWMEALS SQ Last administered on 11/15/16 12:16; Start 11/15/16 at 12:00 Dextrose (Dextrose 50%-Water Syringe) 12.5 gm PRN Q15MIN PRN IV SEE COMMENTS; Start 11/15/16 at 11:45 Acetaminophen (Tylenol) 650 mg PRN Q4HRS PRN PO PAIN; Start 11/15/16 at 11:45 Aspirin (Children'S Aspirin) 81 mg DAILY PO Last administered on 11/16/16 09:02 ; Start 11/15/16 at 13:00 Atorvastatin Calcium (Lipitor) 20 mg QHS PO Last administered on 11/15/16 20:45 ; Start 11/15/16 at 21:00 Vitamin D (Vitamin D3) 1,000 unit DAILY PO Last administered on 11/16/16 09:02 ; Start 11/15/16 at 13:00 Donepezil HCl (Aricept) 10 mg DAILY PO Last administered on 11/16/16 09:02; Start 11/15/16 at 13:00 Enoxaparin Sodium (Lovenox 40mg Syringe) 40 mg DAILY16 SQ Last administered on 11/15/16 16:23; Start 11/15/16 at 16:00 Magnesium Hydroxide (Milk Of Magnesia) 2,400 mg PRN DAILY PRN PO CONSTIPATION; Start 11/15/16 at 12:00 Oxycodone HCl (Roxicodone) 5 mg PRN Q4HRS PRN PO PAIN; Start 11/15/16 at 11:45 Polyethylene Glycol (miraLAX PACKET) 17 gm PRN DAILY PRN PO CONSTIPATION; Start 11/15/16 at 11:45 Tamsulosin HCl (Flomax) 0.4 mg DAILY PO Last administered on 11/16/16 09:02; Start 11/15/16 at 13:00 Calcium Carbonate/ Glycine (Tums) 500 mg TID PO Last administered on 11/16/16 08:51; Start 11/15/16 at 14:00 Multivitamins (Thera M Plus) 1 tab DAILY PO Last administered on 11/16/16 09:02 ; Start 11/15/16 at 13:00 Furosemide (Lasix) 40 mg 1X ONCE IVP Last administered on 11/15/16 12:09; Start 11/15/16 at 12:00; Stop 11/15/16 at 12:01; Status DC Furosemide (Lasix) 40 mg DAILY IVP Last administered on 11/16/16 08:50; Start 11/16/16 at 09:00 Albuterol/ Ipratropium (Duoneb) 3 ml RTQID NEB Last administered on 11/16/16 11 :09; Start 11/15/16 at 16:00 Active Scripts Active Reported Atorvastatin Calcium 20 Mg Tablet 1 Tab PO DAILY Children's Aspirin (Aspirin) 81 Mg Tab.chew 81 Mg PO DAILY Milk Of Magnesia (Magnesium Hydroxide) 400 Mg/5 Ml Oral.susp 400 Mg PO PRN DAILY Miralax (Polyethylene Glycol 3350) 17 Gm Powd.pack 1 Packet PO PRN DAILY Lovenox (Enoxaparin Sodium) 40 Mg/0.4 Ml Disp.syrin 40 Mg SQ DAILY Oxycodone Hcl 5 Mg Tablet 5 Mg PO PRN Q4HRS PRN Tamsulosin Hcl 0.4 Mg Cap.er.24h 1 Cap PO DAILY Multivitamins (Multivitamin) 1 Each Tablet 1 Tab PO DAILY Tylenol (Acetaminophen) 325 Mg Tablet 325-650 Mg PO PRN Q8HRS Donepezil Hcl 10 Mg Tablet 1 Tab PO DAILY Vitamin D3 (Cholecalciferol (Vitamin D3)) 1,000 Unit Tablet 1 Tab PO DAILY Calcium Antacid (Calcium Carbonate) 400 Mg Tab.chew 400 Mg PO TID Vitals/I & O Vital Sign - Last 24 Hours 11/15/16 11/15/16 11/15/16 11/15/16 12:17 14:53 19:15 19:59 Temp 97.9 98.4 97.9 98.4 Pulse 60 65 65 Resp 18 18 20 B/P (MAP) 131/60 (83) 130/57 (81) 121/56 (77) Pulse Ox 98 98 94 90 O2 Delivery Nasal Cannula Nasal Cannula Nasal Cannula O2 Flow Rate 3.0 3.0 3.0 11/15/16 11/15/16 11/16/16 11/16/16 20:09 23:00 03:30 07:00 Temp 98.1 97.8 98.2 98.1 97.8 98.2 Pulse 60 63 68 Resp 20 20 20 B/P (MAP) 133/62 (85) 112/53 (72) 129/60 (83) Pulse Ox 96 98 96 O2 Delivery Nasal Cannula Nasal Cannula Nasal Cannula Nasal Cannula O2 Flow Rate 3.0 3.0 3.0 3.0 11/16/16 11/16/16 11/16/16 11/16/16 08:00 08:05 11:00 11:10 Temp 98.1 98.1 Pulse 68 Resp 20 B/P (MAP) 126/59 (81) Pulse Ox 96 95 95 O2 Delivery Nasal Cannula Nasal Cannula O2 Flow Rate 4.0 5.0 5.0 4.0 Intake and Output 11/15/16 11/15/16 11/16/16 15:00 23:00 07:00 Intake Total 700 ml 1080 ml 560 ml Output Total 75 ml 325 ml Balance 625 ml 755 ml 560 ml BRAXTON SMITH MD Nov 16, 2016 11:38
[2016-11-16 11:55] LABS: CHOLESTEROL/HDL RATIO 2.1
[2016-11-16 13:04] LABS: HCO3 ABG 50 mmol/L (21-28); PO2 ABG 67 mmHg (65-108); SAT O2 ABG 92 % (92-99)
[2016-11-16] MEDS ORDERED: FUROSEMIDE 40 MG/4 ML VIAL. IVP ONE (14:00)
[2016-11-16 14:56] LABS: PCO2 ABG 123 mmHg (35-46); PH ABG 7.23 (7.35-7.45)
[2016-11-16 14:57] LABS: FIO2 ABG 40
[2016-11-16 15:24] LABS: HCO3 ABG 46 mmol/L (21-28); PH ABG 7.33 (7.35-7.45); PO2 ABG 58 mmHg (65-108); SAT O2 ABG 90 % (92-99)
--- NOTE | 2016-11-16 16:11 | PDOC2 ---
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) Heme/Onc: B12 deficiency Psych: Anxiety, Depression Musculoskeletal: low back pain, Other (multiple compression fractures) Rheumatologic: Other (OP/OA) Renal/: Chronic renal insuff Endocrine: Diabetes, Osteopenia, Osteoporosis Past Surgical History Past Surgical History: Cataract Removal (fracture repair as above.), Other ( RIGHT INTERTROCAHANTERIC FRACTURE) Family History Family History UNKNOWN Family History: Other (Non contibutory ) Social History Social History RESIDE AT MD No ALCOHOL: rare Drugs: None Current Problem List Problem List Problems Medical Problems: (1) CHF exacerbation Status: Acute Current Medications Current Medications Current Medications Aspirin (Children'S Aspirin) 324 mg 1X ONCE PO Last administered on 11/14/16 18:13; Start 11/14/16 at 18:15; Stop 11/14/16 at 18:16; Status DC Ondansetron HCl (Zofran) 4 mg PRN Q8HRS PRN IV NAUSEA/VOMITING; Start 11/14/16 at 18:15; Stop 11/15/16 at 18:14; Status DC Morphine Sulfate 4 mg PRN Q2HR PRN IV PAIN; Start 11/14/16 at 18:15; Stop at 18:14; Status DC Furosemide (Lasix) 80 mg 1X ONCE PO Last administered on 11/14/16 18:37; Start 11/14/16 at 18:15; Stop 11/14/16 at 18:23; Status DC Insulin Aspart (NovoLOG) 0-5 UNITS TIDWMEALS SQ Last administered on 11/15/16 12:16; Start 11/15/16 at 12:00 Dextrose (Dextrose 50%-Water Syringe) 12.5 gm PRN Q15MIN PRN IV SEE COMMENTS; Start 11/15/16 at 11:45 Acetaminophen (Tylenol) 650 mg PRN Q4HRS PRN PO PAIN; Start 11/15/16 at 11:45 Aspirin (Children'S Aspirin) 81 mg DAILY PO Last administered on 11/16/16 09:02 ; Start 11/15/16 at 13:00 Atorvastatin Calcium (Lipitor) 20 mg QHS PO Last administered on 11/15/16 20:45 ; Start 11/15/16 at 21:00 Vitamin D (Vitamin D3) 1,000 unit DAILY PO Last administered on 11/16/16 09:02 ; Start 11/15/16 at 13:00 Donepezil HCl (Aricept) 10 mg DAILY PO Last administered on 11/16/16 09:02; Start 11/15/16 at 13:00 Enoxaparin Sodium (Lovenox 40mg Syringe) 40 mg DAILY16 SQ Last administered on 11/15/16 16:23; Start 11/15/16 at 16:00 Magnesium Hydroxide (Milk Of Magnesia) 2,400 mg PRN DAILY PRN PO CONSTIPATION; Start 11/15/16 at 12:00 Oxycodone HCl (Roxicodone) 5 mg PRN Q4HRS PRN PO PAIN; Start 11/15/16 at 11:45 Polyethylene Glycol (miraLAX PACKET) 17 gm PRN DAILY PRN PO CONSTIPATION; Start 11/15/16 at 11:45 Tamsulosin HCl (Flomax) 0.4 mg DAILY PO Last administered on 11/16/16 09:02; Start 11/15/16 at 13:00 Calcium Carbonate/ Glycine (Tums) 500 mg TID PO Last administered on 11/16/16 08:51; Start 11/15/16 at 14:00 Multivitamins (Thera M Plus) 1 tab DAILY PO Last administered on 11/16/16 09:02 ; Start 11/15/16 at 13:00 Furosemide (Lasix) 40 mg 1X ONCE IVP Last administered on 11/15/16 12:09; Start 11/15/16 at 12:00; Stop 11/15/16 at 12:01; Status DC Furosemide (Lasix) 40 mg DAILY IVP Last administered on 11/16/16 08:50; Start 11/16/16 at 09:00 Albuterol/ Ipratropium (Duoneb) 3 ml RTQID NEB Last administered on 11/16/16 11 :09; Start 11/15/16 at 16:00 Furosemide (Lasix) 40 mg 1X ONCE IVP Last administered on 11/16/16 15:49; Start 11/16/16 at 14:00; Stop 11/16/16 at 14:01; Status DC Active Scripts Active Reported Atorvastatin Calcium 20 Mg Tablet 1 Tab PO DAILY Children's Aspirin (Aspirin) 81 Mg Tab.chew 81 Mg PO DAILY Milk Of Magnesia (Magnesium Hydroxide) 400 Mg/5 Ml Oral.susp 400 Mg PO PRN DAILY Miralax (Polyethylene Glycol 3350) 17 Gm Powd.pack 1 Packet PO PRN DAILY Lovenox (Enoxaparin Sodium) 40 Mg/0.4 Ml Disp.syrin 40 Mg SQ DAILY Oxycodone Hcl 5 Mg Tablet 5 Mg PO PRN Q4HRS PRN Tamsulosin Hcl 0.4 Mg Cap.er.24h 1 Cap PO DAILY Multivitamins (Multivitamin) 1 Each Tablet 1 Tab PO DAILY Tylenol (Acetaminophen) 325 Mg Tablet 325-650 Mg PO PRN Q8HRS Donepezil Hcl 10 Mg Tablet 1 Tab PO DAILY Vitamin D3 (Cholecalciferol (Vitamin D3)) 1,000 Unit Tablet 1 Tab PO DAILY Calcium Antacid (Calcium Carbonate) 400 Mg Tab.chew 400 Mg PO TID Allergies Allergies: Coded Allergies: Penicillins (Verified Allergy, Intermediate, 11/14/16) hydrocodone (Verified Allergy, Intermediate, 11/14/16) ROS Review of System UN ABLE TO OBTAIN Physical Exam Physical Exam ON BIPAP SLEEPY BUT AWAKEN AND MOVES WITH STIMULATION Lungs: Other (EDOUARD RHONCHI) Heart: Regular rate, Normal S1, Normal S2 Abdomen: Normal bowel sounds, Soft Extremities: Other (CONTRACTURES AND EDEMA) MUSCULOSKELETAL: Other (CONTRACTURES) Vitals VITALS Vital Signs Date Time Temp Pulse Resp B/P (MAP) Pulse Ox O2 Delivery O2 Flow Rate FiO2 11/16/16 13:40 90 BiPAP/CPAP 11/16/16 13:00 5.0 11/16/16 11:00 98.1 68 20 126/59 (81) 98.1 Labs Labs Laboratory Tests Test 11/14/16 17:05 11/14/16 23:40 11/15/16 00:20 11/15/16 06:05 White Blood Count 5.4 x10^3/uL (4.0-11.0) 7.3 x10^3/uL (4.0-11.0) Red Blood Count 3.11 x10^6/uL (4.30-5.70) 3.50 x10^6/uL (4.30-5.70) Hemoglobin 9.5 g/dL (13.0-17.5) 10.3 g/dL (13.0-17.5) Hematocrit 29.2 % (39.0-53.0) 33.6 % (39.0-53.0) Mean Corpuscular Volume 94 fL (79-100) 96 fL (79-100) Mean Corpuscular Hemoglobin 31 pg (25-35) 30 pg (25-35) Mean Corpuscular Hemoglobin Concent 33 g/dL (31-37) 31 g/dL (31-37) Red Cell Distribution Width 18.2 % (11.5-14.5) 18.2 % (11.5-14.5) Platelet Count 220 x10^3/uL (140-400) 262 x10^3/uL (140-400) Neutrophils (%) (Auto) 66 % (31-73) 65 % (31-73) Lymphocytes (%) (Auto) 18 % (24-48) 22 % (24-48) Monocytes (%) (Auto) 14 % (0-9) 11 % (0-9) Eosinophils (%) (Auto) 2 % (0-3) 2 % (0-3) Basophils (%) (Auto) 1 % (0-3) 1 % (0-3) Neutrophils # (Auto) 3.6 x10^3uL (1.8-7.7) 4.8 x10^3uL (1.8-7.7) Lymphocytes # (Auto) 1.0 x10^3/uL (1.0-4.8) 1.6 x10^3/uL (1.0-4.8) Monocytes # (Auto) 0.7 x10^3/uL (0.0-1.1) 0.8 x10^3/uL (0.0-1.1) Eosinophils # (Auto) 0.1 x10^3/uL (0.0-0.7) 0.1 x10^3/uL (0.0-0.7) Basophils # (Auto) 0.0 x10^3/uL (0.0-0.2) 0.1 x10^3/uL (0.0-0.2) Prothrombin Time 14.4 SEC (11.7-14.0) Prothromb Time International Ratio 1.2 (0.8-1.1) Sodium Level 142 mmol/L (136-145) 143 mmol/L (136-145) Potassium Level 4.6 mmol/L (3.5-5.1) 5.2 mmol/L (3.5-5.1) Chloride Level 100 mmol/L (98-107) 101 mmol/L (98-107) Carbon Dioxide Level 43 mmol/L (21-32) 41 mmol/L (21-32) Anion Gap -1 (6-14) 1 (6-14) Blood Urea Nitrogen 52 mg/dL (8-26) 51 mg/dL (8-26) Creatinine 1.5 mg/dL (0.7-1.3) 1.4 mg/dL (0.7-1.3) Estimated GFR (Cockcroft-Gault) 44.5 48.2 BUN/Creatinine Ratio 35 (6-20) Glucose Level 161 mg/dL (70-99) 115 mg/dL (70-99) Calcium Level 8.2 mg/dL (8.5-10.1) 8.2 mg/dL (8.5-10.1) Total Bilirubin 0.7 mg/dL (0.2-1.0) Aspartate Amino Transf (AST/SGOT) 23 U/L (15-37) Alanine Aminotransferase (ALT/SGPT) 19 U/L (16-63) Alkaline Phosphatase 93 U/L (46-116) Troponin I Quantitative 0.068 ng/mL (0.000-0.055) 0.067 ng/mL (0.000-0.055) 0.076 ng/mL (0.000-0.055) CR-Xpd-Q-Type Natriuretic Peptide 4975 pg/mL (0-449) Total Protein 6.6 g/dL (6.4-8.2) Albumin 2.2 g/dL (3.4-5.0) Albumin/Globulin Ratio 0.5 (1.0-1.7) Lipase 73 U/L (73-393) O2 Saturation 97 % (92-99) Arterial Blood pH 7.35 (7.35-7.45) Arterial Blood pCO2 at Patient Temp 79 mmHg (35-46) Arterial Blood pO2 at Patient Temp 93 mmHg (65-108) Arterial Blood HCO3 43 mmol/L (21-28) Arterial Blood Base Excess 14 mmol/L (-3-3) FiO2 32 Magnesium Level 2.2 mg/dL (1.8-2.4) Test 11/15/16 11:37 11/15/16 16:22 11/15/16 20:37 11/16/16 07:22 Glucose (Fingerstick) 205 mg/dL (70-99) 134 mg/dL (70-99) 198 mg/dL (70-99) 121 mg/dL (70-99) Test 11/16/16 08:15 11/16/16 08:48 11/16/16 12:13 11/16/16 12:51 White Blood Count 7.3 x10^3/uL (4.0-11.0) Red Blood Count 3.30 x10^6/uL (4.30-5.70) Hemoglobin 10.0 g/dL (13.0-17.5) Hematocrit 31.5 % (39.0-53.0) Mean Corpuscular Volume 96 fL (79-100) Mean Corpuscular Hemoglobin 30 pg (25-35) Mean Corpuscular Hemoglobin Concent 32 g/dL (31-37) Red Cell Distribution Width 17.9 % (11.5-14.5) Platelet Count 245 x10^3/uL (140-400) Sodium Level 144 mmol/L (136-145) Potassium Level 5.2 mmol/L (3.5-5.1) Chloride Level 102 mmol/L (98-107) Carbon Dioxide Level 45 mmol/L (21-32) Anion Gap (6-14) Blood Urea Nitrogen 52 mg/dL (8-26) Creatinine 1.5 mg/dL (0.7-1.3) Estimated GFR (Cockcroft-Gault) 44.5 BUN/Creatinine Ratio 35 (6-20) Glucose Level 126 mg/dL (70-99) Calcium Level 8.3 mg/dL (8.5-10.1) Magnesium Level 2.1 mg/dL (1.8-2.4) Total Bilirubin 0.8 mg/dL (0.2-1.0) Aspartate Amino Transf (AST/SGOT) 19 U/L (15-37) Alanine Aminotransferase (ALT/SGPT) 16 U/L (16-63) Alkaline Phosphatase 86 U/L (46-116) Troponin I Quantitative 0.054 ng/mL (0.000-0.055) Total Protein 7.1 g/dL (6.4-8.2) Albumin 2.4 g/dL (3.4-5.0) Albumin/Globulin Ratio 0.5 (1.0-1.7) Triglycerides Level 47 mg/dL (0-150) Cholesterol Level 99 mg/dL (0-200) LDL Cholesterol, Calculated 43 mg/dL (0-100) VLDL Cholesterol, Calculated 9 mg/dL (0-40) Non-HDL Cholesterol Calculated 52 mg/dL (0-129) HDL Cholesterol 47 mg/dL (40-60) Cholesterol/HDL Ratio 2.1 Vitamin B12 Level 369 pg/mL (247-911) Thyroid Stimulating Hormone (TSH) 1.259 uIU/mL (0.358-3.74) Glucose (Fingerstick) 117 mg/dL (70-99) 159 mg/dL (70-99) O2 Saturation 92 % (92-99) Arterial Blood pH 7.23 (7.35-7.45) Arterial Blood pCO2 at Patient Temp 123 mmHg (35-46) Arterial Blood pO2 at Patient Temp 67 mmHg (65-108) Arterial Blood HCO3 50 mmol/L (21-28) Arterial Blood Base Excess 18 mmol/L (-3-3) FiO2 40 Laboratory Tests Test 11/15/16 16:22 11/15/16 20:37 11/16/16 07:22 11/16/16 08:15 Glucose (Fingerstick) 134 mg/dL (70-99) 198 mg/dL (70-99) 121 mg/dL (70-99) White Blood Count 7.3 x10^3/uL (4.0-11.0) Red Blood Count 3.30 x10^6/uL (4.30-5.70) Hemoglobin 10.0 g/dL (13.0-17.5) Hematocrit 31.5 % (39.0-53.0) Mean Corpuscular Volume 96 fL (79-100) Mean Corpuscular Hemoglobin 30 pg (25-35) Mean Corpuscular Hemoglobin Concent 32 g/dL (31-37) Red Cell Distribution Width 17.9 % (11.5-14.5) Platelet Count 245 x10^3/uL (140-400) Sodium Level 144 mmol/L (136-145) Potassium Level 5.2 mmol/L (3.5-5.1) Chloride Level 102 mmol/L (98-107) Carbon Dioxide Level 45 mmol/L (21-32) Anion Gap (6-14) Blood Urea Nitrogen 52 mg/dL (8-26) Creatinine 1.5 mg/dL (0.7-1.3) Estimated GFR (Cockcroft-Gault) 44.5 BUN/Creatinine Ratio 35 (6-20) Glucose Level 126 mg/dL (70-99) Calcium Level 8.3 mg/dL (8.5-10.1) Magnesium Level 2.1 mg/dL (1.8-2.4) Total Bilirubin 0.8 mg/dL (0.2-1.0) Aspartate Amino Transf (AST/SGOT) 19 U/L (15-37) Alanine Aminotransferase (ALT/SGPT) 16 U/L (16-63) Alkaline Phosphatase 86 U/L (46-116) Troponin I Quantitative 0.054 ng/mL (0.000-0.055) Total Protein 7.1 g/dL (6.4-8.2) Albumin 2.4 g/dL (3.4-5.0) Albumin/Globulin Ratio 0.5 (1.0-1.7) Triglycerides Level 47 mg/dL (0-150) Cholesterol Level 99 mg/dL (0-200) LDL Cholesterol, Calculated 43 mg/dL (0-100) VLDL Cholesterol, Calculated 9 mg/dL (0-40) Non-HDL Cholesterol Calculated 52 mg/dL (0-129) HDL Cholesterol 47 mg/dL (40-60) Cholesterol/HDL Ratio 2.1 Vitamin B12 Level 369 pg/mL (247-911) Thyroid Stimulating Hormone (TSH) 1.259 uIU/mL (0.358-3.74) Test 11/16/16 08:48 11/16/16 12:13 11/16/16 12:51 Glucose (Fingerstick) 117 mg/dL (70-99) 159 mg/dL (70-99) O2 Saturation 92 % (92-99) Arterial Blood pH 7.23 (7.35-7.45) Arterial Blood pCO2 at Patient Temp 123 mmHg (35-46) Arterial Blood pO2 at Patient Temp 67 mmHg (65-108) Arterial Blood HCO3 50 mmol/L (21-28) Arterial Blood Base Excess 18 mmol/L (-3-3) FiO2 40 Assessment/Plan Assessment/Plan ACUTE /CHRONIC RESP FAILURE MULTIFACTORIAL ACUTE / CHRONIC HEART FAILURE DIASTOLIC ACUTE /CHRONIC PULMONARY HYPERTION SEVERE MEASURED AT 92MM/MG MET ENCEPH A FIB CHRONIC VENOUS INSUFF LOWER EXT DECUBITUS ULCERS CKD PLAN OVERALL POOR PROGNOSIS I WOULD REC DNR/ ALLOW NATURAL REC NO INTUBATION IF PT DETERIORATES ABG IMPROVED TO 7.32/96/57/50 DIURESE PER CARD, NO NEED FOR ANTIBX THANKS NOLVIA MORALEZ MD Nov 16, 2016 16:11
[2016-11-16] MEDS: ENOXAPARIN 40 MG/0.4 ML SYRINGE. SQ SCH (17:49)
[2016-11-16 18:39] LABS: FIO2 ABG 40; PCO2 ABG 91 mmHg (35-46)
[2016-11-16] MEDS: ATORVASTATIN CALCIUM 20 MG TABLET PO SCH (20:57)
[2016-11-17 03:15] VITALS: BP 107/53
[2016-11-17 03:27] LABS: HEMATOCRIT 26.2 % (39.0-53.0); HEMOGLOBIN 8.3 g/dL (13.0-17.5); RED BLOOD COUNT 2.75 x10^6/uL (4.30-5.70); RED CELL DISTRIBUTION WIDTH 17.7 % (11.5-14.5); WHITE BLOOD COUNT 5.5 x10^3/uL (4.0-11.0)
[2016-11-17 04:08] LABS: PH ABG 7.39 (7.35-7.45)
[2016-11-17 04:12] LABS: PCO2 ABG 67 mmHg (35-46)
[2016-11-17 04:13] LABS: FIO2 ABG 40; HCO3 ABG 40 mmol/L (21-28); PO2 ABG 54 mmHg (65-108); SAT O2 ABG 90 % (92-99)
[2016-11-17 07:00] VITALS: BP 103/57
[2016-11-17] MEDS: IPRATRPIUM/ALBUTEROL 0.5/2.5MG 3 ML NEBU. NEB SCH ×4 (07:44→18:26)
[2016-11-17 07:57] LABS: HCO3 ABG 40 mmol/L (21-28); PCO2 ABG 57 mmHg (35-46); PH ABG 7.46 (7.35-7.45); PO2 ABG 74 mmHg (65-108); SAT O2 ABG 95 % (92-99)
[2016-11-17 07:59] LABS: FIO2 ABG 40
[2016-11-17] MEDS: INSULIN ASPART 300 UNITS/3 ML INSULN.PEN SQ SCH ×3 (08:00→17:00)
[2016-11-17] MEDS: MULTIVITAMIN with MINERAL TABLET. PO SCH (09:28)
[2016-11-17] MEDS: DONEPEZIL HCL 10 MG TABLET. PO SCH (09:28)
[2016-11-17] MEDS: ASPIRIN CHEWABLE 81 MG TABLET. PO SCH (09:28)
[2016-11-17] MEDS: TAMSULOSIN 0.4 MG CAP.ER.24H. PO SCH (09:28)
[2016-11-17] MEDS: FUROSEMIDE 40 MG/4 ML VIAL. IVP SCH (09:29)
[2016-11-17] MEDS: CHOLECALCIFEROL (VITAMIN D3) 1,000 UNIT TABLET PO SCH (09:29)
[2016-11-17] MEDS: CALCIUM CARBONATE 500 MG TAB.CHEW PO SCH ×3 (09:29→22:11)
--- NOTE | 2016-11-17 10:58 | PDOC ---
SUBJECTIVE Subjective much improved awake on BIPAP Blood gases are much improved OBJECTIVE Objective awake alert in NAD Vital Signs Vital Signs Date Time Temp Pulse Resp B/P (MAP) Pulse Ox O2 Delivery O2 Flow Rate FiO2 11/17/16 07:37 98 BiPAP/CPAP 11/17/16 07:00 98.1 60 24 103/57 (72) 98 BiPAP/CPAP 98.1 11/17/16 05:10 96 BiPAP/CPAP 11/17/16 03:15 98.9 70 18 107/53 (71) 99 Nasal Cannula 5.0 98.9 11/17/16 03:10 BiPAP/CPAP 11/17/16 01:05 BiPAP/CPAP 11/16/16 23:36 BiPAP/CPAP 11/16/16 23:10 98.7 65 18 112/56 (74) 98 Nasal Cannula 5.0 98.7 11/16/16 20:35 95 BiPAP/CPAP 11/16/16 20:00 Bi-pap 11/16/16 19:20 99.0 68 21 98/51 (67) 93 BiPAP/CPAP 99.0 11/16/16 19:16 90 BiPAP/CPAP 11/16/16 18:10 95 BiPAP/CPAP 11/16/16 16:45 60 95/45 (62) 11/16/16 16:14 95 BiPAP/CPAP 11/16/16 15:00 98.9 65 16 84/53 (63) 92 BiPAP/CPAP 98.9 11/16/16 13:40 90 BiPAP/CPAP 11/16/16 13:00 Nasal Cannula 5.0 11/16/16 11:10 95 4.0 11/16/16 11:00 98.1 68 20 126/59 (81) 95 Nasal Cannula 5.0 98.1 I & O Intake and Output 11/17/16 07:00 Intake Total 490 ml Balance 490 ml Intake Oral 490 ml # Voids 9 PHYSICAL EXAM Physical Exam VITALS stable Heart S1 and S2 normal no sheila, rub or murmur Chest CTA Abdomen soft non tender [employer] J[employer] TITLES he definietly more awake alert responding appropraiately move his upper extrmities more readily than his lower extrmities He is mostly bed bound chair bound ASSESSMENT/PLAN Assessment/Plan A/C CHF resoplved A/C HYPOXIC HYPERCAPNIC RESPIRATORY FAILURE much improved on BIPAP Blood gases are much improved Atrial Fibrillation rate controlled COPD Right femoral fracture s/p intramedullary nailing Problems: COMMENT Lab Laboratory Tests Test 11/16/16 12:13 11/16/16 12:51 11/16/16 13:38 11/16/16 17:47 Glucose (Fingerstick) 159 mg/dL (70-99) 125 mg/dL (70-99) O2 Saturation 92 % (92-99) 90 % (92-99) Arterial Blood pH 7.23 (7.35-7.45) 7.33 (7.35-7.45) Arterial Blood pCO2 at Patient Temp 123 mmHg (35-46) 91 mmHg (35-46) Arterial Blood pO2 at Patient Temp 67 mmHg (65-108) 58 mmHg (65-108) Arterial Blood HCO3 50 mmol/L (21-28) 46 mmol/L (21-28) Arterial Blood Base Excess 18 mmol/L (-3-3) 17 mmol/L (-3-3) FiO2 40 40 Test 11/16/16 19:23 11/16/16 21:00 11/17/16 02:58 11/17/16 07:50 O2 Saturation 90 % (92-99) 95 % (92-99) Arterial Blood pH 7.39 (7.35-7.45) 7.46 (7.35-7.45) Arterial Blood pCO2 at Patient Temp 67 mmHg (35-46) 57 mmHg (35-46) Arterial Blood pO2 at Patient Temp 54 mmHg (65-108) 74 mmHg (65-108) Arterial Blood HCO3 40 mmol/L (21-28) 40 mmol/L (21-28) Arterial Blood Base Excess 13 mmol/L (-3-3) 14 mmol/L (-3-3) FiO2 40 40 Glucose (Fingerstick) 114 mg/dL (70-99) White Blood Count 5.5 x10^3/uL (4.0-11.0) Red Blood Count 2.75 x10^6/uL (4.30-5.70) Hemoglobin 8.3 g/dL (13.0-17.5) Hematocrit 26.2 % (39.0-53.0) Mean Corpuscular Volume 95 fL (79-100) Mean Corpuscular Hemoglobin 30 pg (25-35) Mean Corpuscular Hemoglobin Concent 32 g/dL (31-37) Red Cell Distribution Width 17.7 % (11.5-14.5) Platelet Count 209 x10^3/uL (140-400) Test 11/17/16 08:05 Glucose (Fingerstick) 97 mg/dL (70-99) BRAXTON SMITH MD Nov 17, 2016 10:58
[2016-11-17 11:00] VITALS: BP 113/53
[2016-11-17 15:00] VITALS: BP 116/41
[2016-11-17] MEDS: ENOXAPARIN 40 MG/0.4 ML SYRINGE. SQ SCH (17:06)
--- NOTE | 2016-11-17 17:56 | PDOC ---
PULMONARY PROGRESS NOTES Subjective PT OFF BIPAP NO RESP COMPLAINTS Vitals Vital Signs Date Time Temp Pulse Resp B/P (MAP) Pulse Ox O2 Delivery O2 Flow Rate FiO2 11/17/16 16:01 92 Venturi Mask 9.0 11/17/16 15:00 97.4 63 20 116/41 (66) 97.4 ROS: No Nausea, No Chest Pain, No Abdominal Pain, No Increase Cough General: Alert Lungs: Crackles Cardiovascular: S1, S2 Abdomen: Soft, Non-tender, Other (OBESE) Neuro Exam: Alert Extremities: Other (EDEMA) Skin: Warm Labs Laboratory Tests Test 11/15/16 20:37 11/16/16 07:22 11/16/16 08:15 11/16/16 08:48 Glucose (Fingerstick) 198 mg/dL (70-99) 121 mg/dL (70-99) 117 mg/dL (70-99) White Blood Count 7.3 x10^3/uL (4.0-11.0) Red Blood Count 3.30 x10^6/uL (4.30-5.70) Hemoglobin 10.0 g/dL (13.0-17.5) Hematocrit 31.5 % (39.0-53.0) Mean Corpuscular Volume 96 fL (79-100) Mean Corpuscular Hemoglobin 30 pg (25-35) Mean Corpuscular Hemoglobin Concent 32 g/dL (31-37) Red Cell Distribution Width 17.9 % (11.5-14.5) Platelet Count 245 x10^3/uL (140-400) Sodium Level 144 mmol/L (136-145) Potassium Level 5.2 mmol/L (3.5-5.1) Chloride Level 102 mmol/L (98-107) Carbon Dioxide Level 45 mmol/L (21-32) Anion Gap (6-14) Blood Urea Nitrogen 52 mg/dL (8-26) Creatinine 1.5 mg/dL (0.7-1.3) Estimated GFR (Cockcroft-Gault) 44.5 BUN/Creatinine Ratio 35 (6-20) Glucose Level 126 mg/dL (70-99) Hemoglobin A1c 5.5 % (4.8-5.6) Calcium Level 8.3 mg/dL (8.5-10.1) Magnesium Level 2.1 mg/dL (1.8-2.4) Total Bilirubin 0.8 mg/dL (0.2-1.0) Aspartate Amino Transf (AST/SGOT) 19 U/L (15-37) Alanine Aminotransferase (ALT/SGPT) 16 U/L (16-63) Alkaline Phosphatase 86 U/L (46-116) Troponin I Quantitative 0.054 ng/mL (0.000-0.055) Total Protein 7.1 g/dL (6.4-8.2) Albumin 2.4 g/dL (3.4-5.0) Albumin/Globulin Ratio 0.5 (1.0-1.7) Triglycerides Level 47 mg/dL (0-150) Cholesterol Level 99 mg/dL (0-200) LDL Cholesterol, Calculated 43 mg/dL (0-100) VLDL Cholesterol, Calculated 9 mg/dL (0-40) Non-HDL Cholesterol Calculated 52 mg/dL (0-129) HDL Cholesterol 47 mg/dL (40-60) Cholesterol/HDL Ratio 2.1 Vitamin B12 Level 369 pg/mL (247-911) Thyroid Stimulating Hormone (TSH) 1.259 uIU/mL (0.358-3.74) Test 11/16/16 12:13 11/16/16 12:51 11/16/16 13:38 11/16/16 17:47 Glucose (Fingerstick) 159 mg/dL (70-99) 125 mg/dL (70-99) O2 Saturation 92 % (92-99) 90 % (92-99) Arterial Blood pH 7.23 (7.35-7.45) 7.33 (7.35-7.45) Arterial Blood pCO2 at Patient Temp 123 mmHg (35-46) 91 mmHg (35-46) Arterial Blood pO2 at Patient Temp 67 mmHg (65-108) 58 mmHg (65-108) Arterial Blood HCO3 50 mmol/L (21-28) 46 mmol/L (21-28) Arterial Blood Base Excess 18 mmol/L (-3-3) 17 mmol/L (-3-3) FiO2 40 40 Test 11/16/16 19:23 11/16/16 21:00 11/17/16 02:58 11/17/16 07:50 O2 Saturation 90 % (92-99) 95 % (92-99) Arterial Blood pH 7.39 (7.35-7.45) 7.46 (7.35-7.45) Arterial Blood pCO2 at Patient Temp 67 mmHg (35-46) 57 mmHg (35-46) Arterial Blood pO2 at Patient Temp 54 mmHg (65-108) 74 mmHg (65-108) Arterial Blood HCO3 40 mmol/L (21-28) 40 mmol/L (21-28) Arterial Blood Base Excess 13 mmol/L (-3-3) 14 mmol/L (-3-3) FiO2 40 40 Glucose (Fingerstick) 114 mg/dL (70-99) White Blood Count 5.5 x10^3/uL (4.0-11.0) Red Blood Count 2.75 x10^6/uL (4.30-5.70) Hemoglobin 8.3 g/dL (13.0-17.5) Hematocrit 26.2 % (39.0-53.0) Mean Corpuscular Volume 95 fL (79-100) Mean Corpuscular Hemoglobin 30 pg (25-35) Mean Corpuscular Hemoglobin Concent 32 g/dL (31-37) Red Cell Distribution Width 17.7 % (11.5-14.5) Platelet Count 209 x10^3/uL (140-400) Test 11/17/16 08:05 11/17/16 11:56 11/17/16 17:13 Glucose (Fingerstick) 97 mg/dL (70-99) 103 mg/dL (70-99) 126 mg/dL (70-99) Laboratory Tests Test 11/16/16 19:23 11/16/16 21:00 11/17/16 02:58 11/17/16 07:50 O2 Saturation 90 % (92-99) 95 % (92-99) Arterial Blood pH 7.39 (7.35-7.45) 7.46 (7.35-7.45) Arterial Blood pCO2 at Patient Temp 67 mmHg (35-46) 57 mmHg (35-46) Arterial Blood pO2 at Patient Temp 54 mmHg (65-108) 74 mmHg (65-108) Arterial Blood HCO3 40 mmol/L (21-28) 40 mmol/L (21-28) Arterial Blood Base Excess 13 mmol/L (-3-3) 14 mmol/L (-3-3) FiO2 40 40 Glucose (Fingerstick) 114 mg/dL (70-99) White Blood Count 5.5 x10^3/uL (4.0-11.0) Red Blood Count 2.75 x10^6/uL (4.30-5.70) Hemoglobin 8.3 g/dL (13.0-17.5) Hematocrit 26.2 % (39.0-53.0) Mean Corpuscular Volume 95 fL (79-100) Mean Corpuscular Hemoglobin 30 pg (25-35) Mean Corpuscular Hemoglobin Concent 32 g/dL (31-37) Red Cell Distribution Width 17.7 % (11.5-14.5) Platelet Count 209 x10^3/uL (140-400) Test 11/17/16 08:05 11/17/16 11:56 11/17/16 17:13 Glucose (Fingerstick) 97 mg/dL (70-99) 103 mg/dL (70-99) 126 mg/dL (70-99) Medications Active Scripts Medications Dose Route/Sig Max Daily Dose Days Date Category Atorvastatin Calcium 20 Mg Tablet 1 Tab PO DAILY 11/14/16 Reported Children's Aspirin (Aspirin) 81 Mg Tab.chew 81 Mg PO DAILY 11/14/16 Reported Milk Of Magnesia (Magnesium Hydroxide) 400 Mg/5 Ml Oral.susp 400 Mg PO PRN DAILY 11/14/16 Reported Miralax (Polyethylene Glycol 3350) 17 Gm Powd.pack 1 Packet PO PRN DAILY 11/14/16 Reported Lovenox (Enoxaparin Sodium) 40 Mg/0.4 Ml Disp.syrin 40 Mg SQ DAILY 11/14/16 Reported Oxycodone Hcl 5 Mg Tablet 5 Mg PO PRN Q4HRS PRN 11/14/16 Reported Tamsulosin Hcl 0.4 Mg Cap.er.24h 1 Cap PO DAILY 11/14/16 Reported Multivitamins (Multivitamin) 1 Each Tablet 1 Tab PO DAILY 11/14/16 Reported Tylenol (Acetaminophen) 325 Mg Tablet 325-650 Mg PO PRN Q8HRS 11/14/16 Reported Donepezil Hcl 10 Mg Tablet 1 Tab PO DAILY 11/14/16 Reported Vitamin D3 (Cholecalciferol (Vitamin D3)) 1,000 Unit Tablet 1 Tab PO DAILY 11/14/16 Reported Calcium Antacid (Calcium Carbonate) 400 Mg Tab.chew 400 Mg PO TID 11/14/16 Reported Impression . 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 PRN AND QHS BIPAP I WOULD REC DNR/ ALLOW NATURAL ABG NOTED IMPROVED SPOKE WITH GUILLERMINA MINAYA PER CARD, NO NEED FOR ANTIBX NOLVIA MORALEZ MD Nov 17, 2016 17:56
[2016-11-17] MEDS ORDERED: LOPERAMIDE 2 MG CAPSULE PO PRN (18:30)
[2016-11-17 19:55] VITALS: BP 107/46
[2016-11-17] MEDS: ATORVASTATIN CALCIUM 20 MG TABLET PO SCH (22:11)
[2016-11-17 22:25] VITALS: BP 106/51
[2016-11-18 03:27] VITALS: BP 116/54
[2016-11-18 06:01] LABS: HEMATOCRIT 27.8 % (39.0-53.0); HEMOGLOBIN 8.9 g/dL (13.0-17.5); RED CELL DISTRIBUTION WIDTH 17.9 % (11.5-14.5); WHITE BLOOD COUNT 4.5 x10^3/uL (4.0-11.0)
[2016-11-18 06:25] LABS: ALBUMIN/GLOBULIN RATIO 0.5 (1.0-1.7); ALK PHOS 72 U/L (46-116); ALT (SGPT) 16 U/L (16-63); AST (SGOT) 26 U/L (15-37); BLOOD UREA NITROGEN 54 mg/dL (8-26); BUN/CREATININE RATIO 49 (6-20); CALCIUM 8.5 mg/dL (8.5-10.1); CARBON DIOXIDE 45 mmol/L (21-32); CHLORIDE 100 mmol/L (98-107); CREATININE 1.1 mg/dL (0.7-1.3); GFR 63.6; GLUCOSE 94 mg/dL (70-99); POTASSIUM 4.2 mmol/L (3.5-5.1); SODIUM 144 mmol/L (136-145); TOTAL BILIRUBIN 0.9 mg/dL (0.2-1.0); TOTAL PROTEIN 5.9 g/dL (6.4-8.2)
[2016-11-18 07:18] VITALS: BP 112/75
[2016-11-18] MEDS: IPRATRPIUM/ALBUTEROL 0.5/2.5MG 3 ML NEBU. NEB SCH ×4 (07:33→19:31)
[2016-11-18] MEDS: INSULIN ASPART 300 UNITS/3 ML INSULN.PEN SQ SCH ×3 (08:00→17:00)
[2016-11-18] MEDS: CHOLECALCIFEROL (VITAMIN D3) 1,000 UNIT TABLET PO SCH (09:00)
[2016-11-18] MEDS: CALCIUM CARBONATE 500 MG TAB.CHEW PO SCH ×3 (09:00→20:24)
[2016-11-18] MEDS: FUROSEMIDE 40 MG/4 ML VIAL. IVP SCH (09:00)
[2016-11-18] MEDS: TAMSULOSIN 0.4 MG CAP.ER.24H. PO SCH (09:00)
[2016-11-18] MEDS: DONEPEZIL HCL 10 MG TABLET. PO SCH (09:00)
[2016-11-18] MEDS: ASPIRIN CHEWABLE 81 MG TABLET. PO SCH (09:00)
[2016-11-18] MEDS: MULTIVITAMIN with MINERAL TABLET. PO SCH (09:00)
[2016-11-18 10:39] VITALS: BP 133/64
--- NOTE | 2016-11-18 11:05 | PDOC ---
CARDIO Progress Notes Date and Time Date of Service 11/18/16 Time of Evaluation 1015 Subjective Subjective: No Chest Pain, No shortness of breath, Other (denies dyspnea although is tachypneic ) Vitals Vitals Vital Signs Date Time Temp Pulse Resp B/P (MAP) Pulse Ox O2 Delivery O2 Flow Rate FiO2 11/18/16 10:39 93 Venturi Mask 9.0 11/18/16 10:39 97.9 92 22 133/64 (87) 97.9 Weight Weight [ ] Input and Output Intake and Output Intake and Output 11/18/16 07:00 Intake Total 740 ml Balance 740 ml Intake Oral 740 ml # Voids 2 Laboratory Labs Laboratory Tests Test 11/17/16 11:56 11/17/16 17:13 11/17/16 20:47 11/18/16 05:10 Glucose (Fingerstick) 103 mg/dL (70-99) 126 mg/dL (70-99) 135 mg/dL (70-99) White Blood Count 4.5 x10^3/uL (4.0-11.0) Red Blood Count 3.00 x10^6/uL (4.30-5.70) Hemoglobin 8.9 g/dL (13.0-17.5) Hematocrit 27.8 % (39.0-53.0) Mean Corpuscular Volume 93 fL (79-100) Mean Corpuscular Hemoglobin 30 pg (25-35) Mean Corpuscular Hemoglobin Concent 32 g/dL (31-37) Red Cell Distribution Width 17.9 % (11.5-14.5) Platelet Count 225 x10^3/uL (140-400) Sodium Level 144 mmol/L (136-145) Potassium Level 4.2 mmol/L (3.5-5.1) Chloride Level 100 mmol/L (98-107) Carbon Dioxide Level 45 mmol/L (21-32) Anion Gap (6-14) Blood Urea Nitrogen 54 mg/dL (8-26) Creatinine 1.1 mg/dL (0.7-1.3) Estimated GFR (Cockcroft-Gault) 63.6 BUN/Creatinine Ratio 49 (6-20) Glucose Level 94 mg/dL (70-99) Calcium Level 8.5 mg/dL (8.5-10.1) Total Bilirubin 0.9 mg/dL (0.2-1.0) Aspartate Amino Transf (AST/SGOT) 26 U/L (15-37) Alanine Aminotransferase (ALT/SGPT) 16 U/L (16-63) Alkaline Phosphatase 72 U/L (46-116) Total Protein 5.9 g/dL (6.4-8.2) Albumin 2.0 g/dL (3.4-5.0) Albumin/Globulin Ratio 0.5 (1.0-1.7) Test 11/18/16 09:31 Glucose (Fingerstick) 113 mg/dL (70-99) Physical Exam HEENT: Neck Supple W Full Motion Chest: Symmetric LUNGS: Other (diminished bases ) Heart: S1S2, no rubs, irregularly irregular (tele AFIB with controlled ventricular rate ) Abdomen: Soft N/T Extremities: Other (1-2+ bilateral LE edmea and erythema. DRSG intact to LLE) Neurology: alert, follow commands, other (drowsy ) Assessment Assessment 1. Acute and chronic diastolic HF; Echo with preserved LV function. improved; continue diuresis 2. H/o CAD; stable, CP free. Trop peak 0.076 3. Hypertension; controlled with meds 4. Acute respiratory failure; off BIPAP, on venti mask. per pulm 5. Chronic AFIB; rate controlled without therapy. ASA for stroke prophylaxis 6. Hyperlipidemia; on statin- lipids on goal KIMBERLY BALDWIN APRN Nov 18, 2016 11:05
--- NOTE | 2016-11-18 11:47 | PDOC ---
SUBJECTIVE Subjective The patient is resting propped up in bed on ventimask He denied any complaints OBJECTIVE Objective The patient is refusing to participate with physical and occupational therapy Vital Signs Vital Signs Date Time Temp Pulse Resp B/P (MAP) Pulse Ox O2 Delivery O2 Flow Rate FiO2 11/18/16 10:39 93 Venturi Mask 9.0 11/18/16 10:39 97.9 92 22 133/64 (87) 96 Venturi Mask 97.9 11/18/16 07:35 93 Venturi Mask 3.0 11/18/16 07:30 Nasal Cannula 3.0 11/18/16 07:18 97.5 57 18 112/75 (87) 97 BiPAP/CPAP 97.5 11/18/16 03:27 98.4 57 20 116/54 (74) 98 BiPAP/CPAP 98.4 11/17/16 22:25 97.8 62 20 106/51 (69) 96 BiPAP/CPAP 97.8 11/17/16 22:06 94 BiPAP/CPAP 11/17/16 20:00 Venturi Mask 11/17/16 19:55 97.6 66 20 107/46 (66) 95 Venturi Mask 97.6 11/17/16 18:27 91 Venturi Mask 9.0 11/17/16 16:01 92 Venturi Mask 9.0 11/17/16 15:00 97.4 63 20 116/41 (66) 91 Room Air 97.4 11/17/16 13:00 3.0 I & O Intake and Output 11/18/16 07:00 Intake Total 740 ml Balance 740 ml Intake Oral 740 ml # Voids 2 PHYSICAL EXAM Physical Exam Resting propped up in nad VSS heent NC/AT NECK SUPPLE HEART S1& S2 NORMAL CHEST clear to auscultation Abdomen is soft non tender 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 cranial nerves II-xii intact Moves upper extremities Mostly bed bound chairbound ASSESSMENT/PLAN Assessment/Plan A/C HYPOXIC HYPERCAPNIC RESPIRATORY FAILURE ATRIAL FIBRILLATION A/C Diastolic CHF Fall with right femoral shaft fractures/p intramedullary nailing Problems: COMMENT Lab Laboratory Tests Test 11/17/16 11:56 11/17/16 17:13 11/17/16 20:47 11/18/16 05:10 Glucose (Fingerstick) 103 mg/dL (70-99) 126 mg/dL (70-99) 135 mg/dL (70-99) White Blood Count 4.5 x10^3/uL (4.0-11.0) Red Blood Count 3.00 x10^6/uL (4.30-5.70) Hemoglobin 8.9 g/dL (13.0-17.5) Hematocrit 27.8 % (39.0-53.0) Mean Corpuscular Volume 93 fL (79-100) Mean Corpuscular Hemoglobin 30 pg (25-35) Mean Corpuscular Hemoglobin Concent 32 g/dL (31-37) Red Cell Distribution Width 17.9 % (11.5-14.5) Platelet Count 225 x10^3/uL (140-400) Sodium Level 144 mmol/L (136-145) Potassium Level 4.2 mmol/L (3.5-5.1) Chloride Level 100 mmol/L (98-107) Carbon Dioxide Level 45 mmol/L (21-32) Anion Gap (6-14) Blood Urea Nitrogen 54 mg/dL (8-26) Creatinine 1.1 mg/dL (0.7-1.3) Estimated GFR (Cockcroft-Gault) 63.6 BUN/Creatinine Ratio 49 (6-20) Glucose Level 94 mg/dL (70-99) Calcium Level 8.5 mg/dL (8.5-10.1) Total Bilirubin 0.9 mg/dL (0.2-1.0) Aspartate Amino Transf (AST/SGOT) 26 U/L (15-37) Alanine Aminotransferase (ALT/SGPT) 16 U/L (16-63) Alkaline Phosphatase 72 U/L (46-116) Total Protein 5.9 g/dL (6.4-8.2) Albumin 2.0 g/dL (3.4-5.0) Albumin/Globulin Ratio 0.5 (1.0-1.7) Test 11/18/16 09:31 Glucose (Fingerstick) 113 mg/dL (70-99) BRAXTON SMITH MD Nov 18, 2016 11:47
[2016-11-18 12:36] LABS: HCO3 ABG 49 mmol/L (21-28); PH ABG 7.38 (7.35-7.45); PO2 ABG 64 mmHg (65-108); SAT O2 ABG 89 % (92-99)
[2016-11-18 12:46] LABS: PCO2 ABG 85 mmHg (35-46)
[2016-11-18 12:47] LABS: FIO2 ABG 35
[2016-11-18 14:46] VITALS: BP 135/61
--- NOTE | 2016-11-18 16:18 | PDOC ---
PULMONARY PROGRESS NOTES Subjective PT BACK ON BIPAP FOR INCREASE C02 Vitals Vital Signs Date Time Temp Pulse Resp B/P (MAP) Pulse Ox O2 Delivery O2 Flow Rate FiO2 11/18/16 15:06 98 Venturi Mask 11/18/16 14:46 97.5 88 22 135/61 (85) 97.5 11/18/16 10:39 9.0 ROS: No Nausea, No Chest Pain, No Abdominal Pain, No Increase Cough General: Alert Lungs: Crackles Cardiovascular: S1, S2 Abdomen: Soft, Non-tender, Other (OBESE) Neuro Exam: Alert Extremities: Other (EDEMA) Skin: Warm Labs Laboratory Tests Test 11/16/16 17:47 11/16/16 19:23 11/16/16 21:00 11/17/16 02:58 Glucose (Fingerstick) 125 mg/dL (70-99) 114 mg/dL (70-99) O2 Saturation 90 % (92-99) Arterial Blood pH 7.39 (7.35-7.45) Arterial Blood pCO2 at Patient Temp 67 mmHg (35-46) Arterial Blood pO2 at Patient Temp 54 mmHg (65-108) Arterial Blood HCO3 40 mmol/L (21-28) Arterial Blood Base Excess 13 mmol/L (-3-3) FiO2 40 White Blood Count 5.5 x10^3/uL (4.0-11.0) Red Blood Count 2.75 x10^6/uL (4.30-5.70) Hemoglobin 8.3 g/dL (13.0-17.5) Hematocrit 26.2 % (39.0-53.0) Mean Corpuscular Volume 95 fL (79-100) Mean Corpuscular Hemoglobin 30 pg (25-35) Mean Corpuscular Hemoglobin Concent 32 g/dL (31-37) Red Cell Distribution Width 17.7 % (11.5-14.5) Platelet Count 209 x10^3/uL (140-400) Test 11/17/16 07:50 11/17/16 08:05 11/17/16 11:56 11/17/16 17:13 O2 Saturation 95 % (92-99) Arterial Blood pH 7.46 (7.35-7.45) Arterial Blood pCO2 at Patient Temp 57 mmHg (35-46) Arterial Blood pO2 at Patient Temp 74 mmHg (65-108) Arterial Blood HCO3 40 mmol/L (21-28) Arterial Blood Base Excess 14 mmol/L (-3-3) FiO2 40 Glucose (Fingerstick) 97 mg/dL (70-99) 103 mg/dL (70-99) 126 mg/dL (70-99) Test 11/17/16 20:47 11/18/16 05:10 11/18/16 09:31 11/18/16 11:34 Glucose (Fingerstick) 135 mg/dL (70-99) 113 mg/dL (70-99) 114 mg/dL (70-99) White Blood Count 4.5 x10^3/uL (4.0-11.0) Red Blood Count 3.00 x10^6/uL (4.30-5.70) Hemoglobin 8.9 g/dL (13.0-17.5) Hematocrit 27.8 % (39.0-53.0) Mean Corpuscular Volume 93 fL (79-100) Mean Corpuscular Hemoglobin 30 pg (25-35) Mean Corpuscular Hemoglobin Concent 32 g/dL (31-37) Red Cell Distribution Width 17.9 % (11.5-14.5) Platelet Count 225 x10^3/uL (140-400) Sodium Level 144 mmol/L (136-145) Potassium Level 4.2 mmol/L (3.5-5.1) Chloride Level 100 mmol/L (98-107) Carbon Dioxide Level 45 mmol/L (21-32) Anion Gap (6-14) Blood Urea Nitrogen 54 mg/dL (8-26) Creatinine 1.1 mg/dL (0.7-1.3) Estimated GFR (Cockcroft-Gault) 63.6 BUN/Creatinine Ratio 49 (6-20) Glucose Level 94 mg/dL (70-99) Calcium Level 8.5 mg/dL (8.5-10.1) Total Bilirubin 0.9 mg/dL (0.2-1.0) Aspartate Amino Transf (AST/SGOT) 26 U/L (15-37) Alanine Aminotransferase (ALT/SGPT) 16 U/L (16-63) Alkaline Phosphatase 72 U/L (46-116) Total Protein 5.9 g/dL (6.4-8.2) Albumin 2.0 g/dL (3.4-5.0) Albumin/Globulin Ratio 0.5 (1.0-1.7) Test 11/18/16 12:30 O2 Saturation 89 % (92-99) Arterial Blood pH 7.38 (7.35-7.45) Arterial Blood pCO2 at Patient Temp 85 mmHg (35-46) Arterial Blood pO2 at Patient Temp 64 mmHg (65-108) Arterial Blood HCO3 49 mmol/L (21-28) Arterial Blood Base Excess 20 mmol/L (-3-3) FiO2 35 Laboratory Tests Test 11/17/16 17:13 11/17/16 20:47 11/18/16 05:10 11/18/16 09:31 Glucose (Fingerstick) 126 mg/dL (70-99) 135 mg/dL (70-99) 113 mg/dL (70-99) White Blood Count 4.5 x10^3/uL (4.0-11.0) Red Blood Count 3.00 x10^6/uL (4.30-5.70) Hemoglobin 8.9 g/dL (13.0-17.5) Hematocrit 27.8 % (39.0-53.0) Mean Corpuscular Volume 93 fL (79-100) Mean Corpuscular Hemoglobin 30 pg (25-35) Mean Corpuscular Hemoglobin Concent 32 g/dL (31-37) Red Cell Distribution Width 17.9 % (11.5-14.5) Platelet Count 225 x10^3/uL (140-400) Sodium Level 144 mmol/L (136-145) Potassium Level 4.2 mmol/L (3.5-5.1) Chloride Level 100 mmol/L (98-107) Carbon Dioxide Level 45 mmol/L (21-32) Anion Gap (6-14) Blood Urea Nitrogen 54 mg/dL (8-26) Creatinine 1.1 mg/dL (0.7-1.3) Estimated GFR (Cockcroft-Gault) 63.6 BUN/Creatinine Ratio 49 (6-20) Glucose Level 94 mg/dL (70-99) Calcium Level 8.5 mg/dL (8.5-10.1) Total Bilirubin 0.9 mg/dL (0.2-1.0) Aspartate Amino Transf (AST/SGOT) 26 U/L (15-37) Alanine Aminotransferase (ALT/SGPT) 16 U/L (16-63) Alkaline Phosphatase 72 U/L (46-116) Total Protein 5.9 g/dL (6.4-8.2) Albumin 2.0 g/dL (3.4-5.0) Albumin/Globulin Ratio 0.5 (1.0-1.7) Test 11/18/16 11:34 11/18/16 12:30 Glucose (Fingerstick) 114 mg/dL (70-99) O2 Saturation 89 % (92-99) Arterial Blood pH 7.38 (7.35-7.45) Arterial Blood pCO2 at Patient Temp 85 mmHg (35-46) Arterial Blood pO2 at Patient Temp 64 mmHg (65-108) Arterial Blood HCO3 49 mmol/L (21-28) Arterial Blood Base Excess 20 mmol/L (-3-3) FiO2 35 Medications Active Scripts Medications Dose Route/Sig Max Daily Dose Days Date Category Atorvastatin Calcium 20 Mg Tablet 1 Tab PO DAILY 11/14/16 Reported Children's Aspirin (Aspirin) 81 Mg Tab.chew 81 Mg PO DAILY 11/14/16 Reported Milk Of Magnesia (Magnesium Hydroxide) 400 Mg/5 Ml Oral.susp 400 Mg PO PRN DAILY 11/14/16 Reported Miralax (Polyethylene Glycol 3350) 17 Gm Powd.pack 1 Packet PO PRN DAILY 11/14/16 Reported Lovenox (Enoxaparin Sodium) 40 Mg/0.4 Ml Disp.syrin 40 Mg SQ DAILY 11/14/16 Reported Oxycodone Hcl 5 Mg Tablet 5 Mg PO PRN Q4HRS PRN 11/14/16 Reported Tamsulosin Hcl 0.4 Mg Cap.er.24h 1 Cap PO DAILY 11/14/16 Reported Multivitamins (Multivitamin) 1 Each Tablet 1 Tab PO DAILY 11/14/16 Reported Tylenol (Acetaminophen) 325 Mg Tablet 325-650 Mg PO PRN Q8HRS 11/14/16 Reported Donepezil Hcl 10 Mg Tablet 1 Tab PO DAILY 11/14/16 Reported Vitamin D3 (Cholecalciferol (Vitamin D3)) 1,000 Unit Tablet 1 Tab PO DAILY 11/14/16 Reported Calcium Antacid (Calcium Carbonate) 400 Mg Tab.chew 400 Mg PO TID 11/14/16 Reported Impression . 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 REPEAT CX SPOKE WITH SPEECH AND RN PROGNOSIS IS POOR PRN AND QHS BIPAP I WOULD REC DNR/ ALLOW NATURAL NOLVIA MORALEZ MD Nov 18, 2016 16:18
--- NOTE | 2016-11-18 16:41 | RAD ---
Portable chest, 11/18/2016: History: Respiratory failure Comparison is made to a study from 11/14/2016. The patient is rotated to the right. There has been a previous median sternotomy. The heart is enlarged. The pulmonary vascularity is congested with loss of vascular margination. There are worsening pulmonary infiltrates probably representing pulmonary edema. Blunting of the right lateral costophrenic angle suggests associated pleural fluid. IMPRESSION: Worsening congestive heart failure with increasing pulmonary infiltrates most compatible with pulmonary edema. A component of pneumonia cannot be excluded.
[2016-11-18] MEDS: IV DEXTROSE 5 %-0.45 % NACL 1,000 ML IV SCH (18:12)
[2016-11-18] MEDS: ENOXAPARIN 40 MG/0.4 ML SYRINGE. SQ SCH (18:15)
--- NOTE | 2016-11-18 19:11 | PDOC2 ---
PALLIATIVE CARE Palliative Care Note Palliative Care Consult requested by Dr. Blulock to address goals of care Diagnosis: CHF; dysphagia--failed swallow test; general decline Patient with intermittent confusion and lethargic at time. Spoke with Jaki (-- now) Has 4 children. Will check with family to arrange meeting tomorrow ANDERSON ROACH Nov 18, 2016 19:11
[2016-11-18 19:39] VITALS: BP 153/68
[2016-11-18] MEDS: ATORVASTATIN CALCIUM 20 MG TABLET PO SCH (20:23)
[2016-11-18 21:15] LABS: HCO3 ABG 49 mmol/L (21-28); PH ABG 7.46 (7.35-7.45); PO2 ABG 65 mmHg (65-108); SAT O2 ABG 92 % (92-99)
[2016-11-18 21:20] LABS: PCO2 ABG 70 mmHg (35-46)
[2016-11-18] MEDS: fentaNYL PF VIAL 100 MCG/2 ML VIAL IV PRN (21:33)
[2016-11-18 22:05] VITALS: BP 148/58
[2016-11-19 03:21] VITALS: BP 132/61
[2016-11-19 07:00] VITALS: BP 162/71
[2016-11-19] MEDS: INSULIN ASPART 300 UNITS/3 ML INSULN.PEN SQ SCH ×3 (08:00→17:00)
[2016-11-19] MEDS: IPRATRPIUM/ALBUTEROL 0.5/2.5MG 3 ML NEBU. NEB SCH ×4 (08:04→19:56)
[2016-11-19] MEDS: ASPIRIN CHEWABLE 81 MG TABLET. PO SCH (08:22)
[2016-11-19] MEDS: DONEPEZIL HCL 10 MG TABLET. PO SCH (08:22)
[2016-11-19] MEDS: CHOLECALCIFEROL (VITAMIN D3) 1,000 UNIT TABLET PO SCH (08:23)
[2016-11-19] MEDS: TAMSULOSIN 0.4 MG CAP.ER.24H. PO SCH (08:23)
[2016-11-19] MEDS: MULTIVITAMIN with MINERAL TABLET. PO SCH (08:23)
[2016-11-19] MEDS: CALCIUM CARBONATE 500 MG TAB.CHEW PO SCH ×3 (08:23→19:58)
[2016-11-19] MEDS: fentaNYL PF VIAL 100 MCG/2 ML VIAL IV PRN (10:12)
[2016-11-19] MEDS: FUROSEMIDE 40 MG/4 ML VIAL. IVP SCH (10:12)
[2016-11-19 11:00] VITALS: BP 151/76
[2016-11-19] MEDS: IV DEXTROSE 5 %-0.45 % NACL 1,000 ML IV SCH (14:06)
--- NOTE | 2016-11-19 14:30 | PDOC ---
PROGRESS NOTES Subjective Subjective Increased shortness of breath. Back on BiPAP. Objective Objective Vital Signs Date Time Temp Pulse Resp B/P (MAP) Pulse Ox O2 Delivery O2 Flow Rate FiO2 11/19/16 12:06 96 BiPAP/CPAP 11/19/16 11:00 98.0 94 26 151/76 (101) 98.0 11/18/16 10:39 9.0 Intake and Output 11/19/16 07:00 Intake Total 0 ml Balance 0 ml Intake Oral 0 ml # Voids 6 Physical Exam Abdomen: Normal bowel sounds Heart: Regular rate General: moderate distress Lungs: Other (decreased breath sounds) Assessment Assessment Problems Medical Problems: (1) CHF exacerbation Status: Acute Assessment Assessment 1. Acute and chronic diastolic HF; Echo with preserved LV function. increasing SOB; continue diuresis 2. H/o CAD; stable, CP free. Trop peak 0.076 3. Hypertension; controlled with meds 4. Acute respiratory failure; back on BIPAP, continuing as per the pulmonary service. 5. Chronic AFIB; rate controlled. ASA for stroke prophylaxis 6. Hyperlipidemia; on statin- lipids on goal Comment Review of Relevant I have reviewed the following items harman (where applicable) has been applied. Labs Laboratory Tests Test 11/17/16 17:13 11/17/16 20:47 11/18/16 05:10 11/18/16 09:31 Glucose (Fingerstick) 126 mg/dL (70-99) 135 mg/dL (70-99) 113 mg/dL (70-99) White Blood Count 4.5 x10^3/uL (4.0-11.0) Red Blood Count 3.00 x10^6/uL (4.30-5.70) Hemoglobin 8.9 g/dL (13.0-17.5) Hematocrit 27.8 % (39.0-53.0) Mean Corpuscular Volume 93 fL (79-100) Mean Corpuscular Hemoglobin 30 pg (25-35) Mean Corpuscular Hemoglobin Concent 32 g/dL (31-37) Red Cell Distribution Width 17.9 % (11.5-14.5) Platelet Count 225 x10^3/uL (140-400) Sodium Level 144 mmol/L (136-145) Potassium Level 4.2 mmol/L (3.5-5.1) Chloride Level 100 mmol/L (98-107) Carbon Dioxide Level 45 mmol/L (21-32) Anion Gap (6-14) Blood Urea Nitrogen 54 mg/dL (8-26) Creatinine 1.1 mg/dL (0.7-1.3) Estimated GFR (Cockcroft-Gault) 63.6 BUN/Creatinine Ratio 49 (6-20) Glucose Level 94 mg/dL (70-99) Calcium Level 8.5 mg/dL (8.5-10.1) Total Bilirubin 0.9 mg/dL (0.2-1.0) Aspartate Amino Transf (AST/SGOT) 26 U/L (15-37) Alanine Aminotransferase (ALT/SGPT) 16 U/L (16-63) Alkaline Phosphatase 72 U/L (46-116) Total Protein 5.9 g/dL (6.4-8.2) Albumin 2.0 g/dL (3.4-5.0) Albumin/Globulin Ratio 0.5 (1.0-1.7) Test 11/18/16 11:34 11/18/16 12:30 11/18/16 16:41 11/18/16 20:52 Glucose (Fingerstick) 114 mg/dL (70-99) 145 mg/dL (70-99) O2 Saturation 89 % (92-99) 92 % (92-99) Arterial Blood pH 7.38 (7.35-7.45) 7.46 (7.35-7.45) Arterial Blood pCO2 at Patient Temp 85 mmHg (35-46) 70 mmHg (35-46) Arterial Blood pO2 at Patient Temp 64 mmHg (65-108) 65 mmHg (65-108) Arterial Blood HCO3 49 mmol/L (21-28) 49 mmol/L (21-28) Arterial Blood Base Excess 20 mmol/L (-3-3) 21 mmol/L (-3-3) FiO2 35 40.0 Test 11/19/16 08:17 11/19/16 11:39 Glucose (Fingerstick) 111 mg/dL (70-99) 140 mg/dL (70-99) Laboratory Tests Test 11/18/16 16:41 11/18/16 20:52 11/19/16 08:17 11/19/16 11:39 Glucose (Fingerstick) 145 mg/dL (70-99) 111 mg/dL (70-99) 140 mg/dL (70-99) O2 Saturation 92 % (92-99) Arterial Blood pH 7.46 (7.35-7.45) Arterial Blood pCO2 at Patient Temp 70 mmHg (35-46) Arterial Blood pO2 at Patient Temp 65 mmHg (65-108) Arterial Blood HCO3 49 mmol/L (21-28) Arterial Blood Base Excess 21 mmol/L (-3-3) FiO2 40.0 Medications Current Medications Aspirin (Children'S Aspirin) 324 mg 1X ONCE PO Last administered on 11/14/16 18:13; Start 11/14/16 at 18:15; Stop 11/14/16 at 18:16; Status DC Ondansetron HCl (Zofran) 4 mg PRN Q8HRS PRN IV NAUSEA/VOMITING; Start 11/14/16 at 18:15; Stop 11/15/16 at 18:14; Status DC Morphine Sulfate 4 mg PRN Q2HR PRN IV PAIN; Start 11/14/16 at 18:15; Stop at 18:14; Status DC Furosemide (Lasix) 80 mg 1X ONCE PO Last administered on 11/14/16 18:37; Start 11/14/16 at 18:15; Stop 11/14/16 at 18:23; Status DC Insulin Aspart (NovoLOG) 0-5 UNITS TIDWMEALS SQ Last administered on 11/15/16 12:16; Start 11/15/16 at 12:00 Dextrose (Dextrose 50%-Water Syringe) 12.5 gm PRN Q15MIN PRN IV SEE COMMENTS; Start 11/15/16 at 11:45 Acetaminophen (Tylenol) 650 mg PRN Q4HRS PRN PO MILD PAIN Last administered on 11/16/16 20:57; Start 11/15/16 at 11:45 Aspirin (Children'S Aspirin) 81 mg DAILY PO Last administered on 11/17/16 09:28 ; Start 11/15/16 at 13:00 Atorvastatin Calcium (Lipitor) 20 mg QHS PO Last administered on 11/17/16 22:11 ; Start 11/15/16 at 21:00 Vitamin D (Vitamin D3) 1,000 unit DAILY PO Last administered on 11/17/16 09:29 ; Start 11/15/16 at 13:00 Donepezil HCl (Aricept) 10 mg DAILY PO Last administered on 11/17/16 09:28; Start 11/15/16 at 13:00 Enoxaparin Sodium (Lovenox 40mg Syringe) 40 mg DAILY16 SQ Last administered on 11/18/16 18:15; Start 11/15/16 at 16:00 Magnesium Hydroxide (Milk Of Magnesia) 2,400 mg PRN DAILY PRN PO CONSTIPATION; Start 11/15/16 at 12:00 Oxycodone HCl (Roxicodone) 5 mg PRN Q4HRS PRN PO MODERATE - SEVERE PAIN; Start 11/15/16 at 11:45 Polyethylene Glycol (miraLAX PACKET) 17 gm PRN DAILY PRN PO CONSTIPATION; Start 11/15/16 at 11:45 Tamsulosin HCl (Flomax) 0.4 mg DAILY PO Last administered on 11/17/16 09:28; Start 11/15/16 at 13:00 Calcium Carbonate/ Glycine (Tums) 500 mg TID PO Last administered on 11/17/16 22:11; Start 11/15/16 at 14:00 Multivitamins (Thera M Plus) 1 tab DAILY PO Last administered on 11/17/16 09:28 ; Start 11/15/16 at 13:00 Furosemide (Lasix) 40 mg 1X ONCE IVP Last administered on 11/15/16 12:09; Start 11/15/16 at 12:00; Stop 11/15/16 at 12:01; Status DC Furosemide (Lasix) 40 mg DAILY IVP Last administered on 11/19/16 10:12; Start 11/16/16 at 09:00 Albuterol/ Ipratropium (Duoneb) 3 ml RTQID NEB Last administered on 11/19/16 12 :06; Start 11/15/16 at 16:00 Furosemide (Lasix) 40 mg 1X ONCE IVP Last administered on 11/16/16 15:49; Start 11/16/16 at 14:00; Stop 11/16/16 at 14:01; Status DC Loperamide HCl (Imodium) 2 mg Q4HRS PRN PO DIARRHEA Last administered on 22:11; Start 11/17/16 at 18:30 Dextrose/Sodium Chloride 1,000 ml @ 50 mls/hr Q20H IV Last administered on 11/19 14:06; Start 11/18/16 at 17:45 Fentanyl Citrate (Fentanyl 2ml Vial) 25 mcg PRN Q4HRS PRN IV PAIN Last administered on 11/19/16 10:12; Start 11/18/16 at 20:00 Active Scripts Active Reported Atorvastatin Calcium 20 Mg Tablet 1 Tab PO DAILY Children's Aspirin (Aspirin) 81 Mg Tab.chew 81 Mg PO DAILY Milk Of Magnesia (Magnesium Hydroxide) 400 Mg/5 Ml Oral.susp 400 Mg PO PRN DAILY Miralax (Polyethylene Glycol 3350) 17 Gm Powd.pack 1 Packet PO PRN DAILY Lovenox (Enoxaparin Sodium) 40 Mg/0.4 Ml Disp.syrin 40 Mg SQ DAILY Oxycodone Hcl 5 Mg Tablet 5 Mg PO PRN Q4HRS PRN Tamsulosin Hcl 0.4 Mg Cap.er.24h 1 Cap PO DAILY Multivitamins (Multivitamin) 1 Each Tablet 1 Tab PO DAILY Tylenol (Acetaminophen) 325 Mg Tablet 325-650 Mg PO PRN Q8HRS Donepezil Hcl 10 Mg Tablet 1 Tab PO DAILY Vitamin D3 (Cholecalciferol (Vitamin D3)) 1,000 Unit Tablet 1 Tab PO DAILY Calcium Antacid (Calcium Carbonate) 400 Mg Tab.chew 400 Mg PO TID Vitals/I & O Vital Sign - Last 24 Hours 11/18/16 11/18/16 11/18/16 11/18/16 14:46 15:06 19:33 19:39 Temp 97.5 97.8 97.5 97.8 Pulse 88 86 Resp 22 22 B/P (MAP) 135/61 (85) 153/68 (96) Pulse Ox 99 98 86 97 O2 Delivery BiPAP/CPAP Venturi Mask Venturi Mask Venturi Mask 11/18/16 11/18/16 11/18/16 11/18/16 20:00 21:33 22:05 23:26 Temp 98.2 98.2 Pulse 85 Resp 25 20 B/P (MAP) 148/58 (88) Pulse Ox 94 95 97 O2 Delivery Bi-pap BiPAP/CPAP BiPAP/CPAP BiPAP/CPAP 11/19/16 11/19/16 11/19/16 11/19/16 02:00 03:21 04:36 05:59 Temp 98.3 98.3 Pulse 67 Resp 20 B/P (MAP) 132/61 (84) Pulse Ox 97 96 93 93 O2 Delivery BiPAP/CPAP BiPAP/CPAP BiPAP/CPAP BiPAP/CPAP 11/19/16 11/19/16 11/19/16 11/19/16 07:00 08:00 08:05 10:12 Temp 97.9 97.9 Pulse 65 Resp 24 24 B/P (MAP) 162/71 (101) Pulse Ox 97 95 94 O2 Delivery BiPAP/CPAP Bi-pap BiPAP/CPAP BiPAP/CPAP 11/19/16 11/19/16 11/19/16 10:42 11:00 12:06 Temp 98.0 98.0 Pulse 94 Resp 24 26 B/P (MAP) 151/76 (101) Pulse Ox 96 95 96 O2 Delivery BiPAP/CPAP Room Air BiPAP/CPAP Intake and Output 11/18/16 11/18/16 11/19/16 15:00 23:00 07:00 Intake Total 0 ml Balance 0 ml LIZETTE YBARRA MD Nov 19, 2016 14:30
[2016-11-19 15:00] VITALS: BP 98/66
[2016-11-19] MEDS: ENOXAPARIN 40 MG/0.4 ML SYRINGE. SQ SCH (17:53)
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
[2016-11-19 18:28] VITALS: BP 101/39
[2016-11-19] MEDS: ATORVASTATIN CALCIUM 20 MG TABLET PO SCH (19:58)
[2016-11-19 23:00] VITALS: BP 138/69
[2016-11-20 03:00] VITALS: BP 108/53
[2016-11-20 07:00] VITALS: BP 85/49
[2016-11-20] MEDS: INSULIN ASPART 300 UNITS/3 ML INSULN.PEN SQ SCH ×3 (08:00→17:00)
[2016-11-20] MEDS: IPRATRPIUM/ALBUTEROL 0.5/2.5MG 3 ML NEBU. NEB SCH ×3 (08:27→15:31)
[2016-11-20] MEDS: CALCIUM CARBONATE 500 MG TAB.CHEW PO SCH ×2 (09:00→14:00)
[2016-11-20] MEDS: MULTIVITAMIN with MINERAL TABLET. PO SCH (09:00)
[2016-11-20] MEDS: CHOLECALCIFEROL (VITAMIN D3) 1,000 UNIT TABLET PO SCH (09:00)
[2016-11-20] MEDS: ASPIRIN CHEWABLE 81 MG TABLET. PO SCH (09:00)
[2016-11-20] MEDS: FUROSEMIDE 40 MG/4 ML VIAL. IVP SCH (09:00)
[2016-11-20] MEDS: DONEPEZIL HCL 10 MG TABLET. PO SCH (09:00)
[2016-11-20] MEDS: TAMSULOSIN 0.4 MG CAP.ER.24H. PO SCH (09:00)
--- NOTE | 2016-11-20 09:56 | PDOC ---
CARDIO Progress Notes Date and Time Date of Service 11/20/16 Time of Evaluation 0920 Subjective Subjective: No Chest Pain, No Palpitations, Other (requiring BIPAP) Vitals Vitals Vital Signs Date Time Temp Pulse Resp B/P (MAP) Pulse Ox O2 Delivery O2 Flow Rate FiO2 11/20/16 09:46 93 BiPAP/CPAP 11/20/16 07:00 97.9 79 24 85/49 (61) 97.9 11/19/16 20:00 15.0 Weight Weight [ ] Input and Output Intake and Output Intake and Output 11/20/16 06:59 Intake Total 100 ml Balance 100 ml Intake Oral 100 ml # Voids 9 Laboratory Labs Laboratory Tests Test 11/19/16 11:39 11/19/16 17:29 11/19/16 20:53 11/20/16 08:17 Glucose (Fingerstick) 140 mg/dL (70-99) 130 mg/dL (70-99) 128 mg/dL (70-99) 150 mg/dL (70-99) Physical Exam HEENT: Neck Supple W Full Motion Chest: Symmetric LUNGS: Other (diminisheds ) Heart: S1S2, no rubs, irregularly irregular (tele AFIB with controlled ventricular rate ) Abdomen: Soft N/T Extremities: Other (1-2+ bilateral LE edmea and RLE erythema. DRSG intact to LLE) Neurology: alert, oriented, follow commands, other (drowsy ) Assessment Assessment 1. Acute and chronic diastolic HF; Echo with preserved LV function. increasing SOB; mildly bradycardic overnight. Avoid AV cortes blocking agents. Continue diuresis as BP allows. 2. H/o CAD; stable, CP free. Trop peak 0.076 3. Hypertension; controlled with meds 4. Acute respiratory failure; on BIPAP, continuing as per the pulmonary service. Now DNR/DNI; plan for Hospice 5. Chronic AFIB; rate controlled. ASA for stroke prophylaxis 6. Hyperlipidemia; on statin- lipids on goal KIMBERLY BALDWIN APRN Nov 20, 2016 09:56
--- NOTE | 2016-11-20 10:33 | PDOC3 ---
Discharge Summary Visit Information Date of Admission: Nov 14, 2016 Date of Discharge: Nov 20, 2016 Admitting Diagnosis Comment: A/C Respiratory failure A/C CHF Severe pulmonary hypertension Dysphagia Final Diagnosis Problems Medical Problems: (1) CHF exacerbation Status: Acute Brief Hospital Course Allergies Allergies Coded Allergies Type Severity Reaction Last Updated Verified Penicillins Allergy Intermediate 11/14/16 Yes hydrocodone Allergy Intermediate 11/14/16 Yes Vital Signs Vital Signs Date Time Temp Pulse Resp B/P (MAP) Pulse Ox O2 Delivery O2 Flow Rate FiO2 11/20/16 09:46 93 BiPAP/CPAP 11/20/16 07:00 97.9 79 24 85/49 (61) 97.9 11/19/16 20:00 15.0 Lab Results Laboratory Tests Test 11/18/16 11:34 11/18/16 12:30 11/18/16 16:41 11/18/16 20:52 Glucose (Fingerstick) 114 mg/dL (70-99) 145 mg/dL (70-99) O2 Saturation 89 % (92-99) 92 % (92-99) Arterial Blood pH 7.38 (7.35-7.45) 7.46 (7.35-7.45) Arterial Blood pCO2 at Patient Temp 85 mmHg (35-46) 70 mmHg (35-46) Arterial Blood pO2 at Patient Temp 64 mmHg (65-108) 65 mmHg (65-108) Arterial Blood HCO3 49 mmol/L (21-28) 49 mmol/L (21-28) Arterial Blood Base Excess 20 mmol/L (-3-3) 21 mmol/L (-3-3) FiO2 35 40.0 Test 11/19/16 08:17 11/19/16 11:39 11/19/16 17:29 11/19/16 20:53 Glucose (Fingerstick) 111 mg/dL (70-99) 140 mg/dL (70-99) 130 mg/dL (70-99) 128 mg/dL (70-99) Test 11/20/16 08:17 Glucose (Fingerstick) 150 mg/dL (70-99) Laboratory Tests Test 11/19/16 11:39 11/19/16 17:29 11/19/16 20:53 11/20/16 08:17 Glucose (Fingerstick) 140 mg/dL (70-99) 130 mg/dL (70-99) 128 mg/dL (70-99) 150 mg/dL (70-99) Brief Hospital Course Mr. Nolasco is a 86 old [sex] who presented with SOB generalized weakness and was found to have A/C Respiratory Failure, A/C CHF , Afib, severe pulmonary hypertension, Discharge Information Condition at Discharge: Comment Disposition/Orders: D/C to Another Facility ([facility]charge to [facility]) Scheduled Acetaminophen (Tylenol), 325-650 MG PO PRN Q8HRS, (Reported) Aspirin (Children's Aspirin), 81 MG PO DAILY, (Reported) Atorvastatin Calcium (Atorvastatin Calcium), 1 TAB PO DAILY, (Reported) Calcium Carbonate (Calcium Antacid), 400 MG PO TID, (Reported) Cholecalciferol (Vitamin D3) (Vitamin D3), 1 TAB PO DAILY, (Reported) Donepezil Hcl (Donepezil Hcl), 1 TAB PO DAILY, (Reported) Enoxaparin Sodium (Lovenox), 40 MG SQ DAILY, (Reported) Magnesium Hydroxide (Milk Of Magnesia), 400 MG PO PRN DAILY, (Reported) Multivitamin (Multivitamins), 1 TAB PO DAILY, (Reported) Polyethylene Glycol 3350 (Miralax), 1 PACKET PO PRN DAILY, (Reported) Tamsulosin Hcl (Tamsulosin Hcl), 1 CAP PO DAILY, (Reported) Scheduled PRN Oxycodone Hcl (Oxycodone Hcl), 5 MG PO PRN Q4HRS PRN for PAIN, (Reported) BRAXTON SMITH MD Nov 20, 2016 10:33
[2016-11-20 11:00] VITALS: BP 96/55
[2016-11-20] MEDS: IV DEXTROSE 5 %-0.45 % NACL 1,000 ML IV SCH (11:52)
[2016-11-20 15:00] VITALS: BP 110/72
--- NOTE | 2016-11-20 15:52 | PDOC ---
PULMONARY PROGRESS NOTES Subjective PT TAKEN OFF BIPAP NOT MORE SOA TODAY WANT TO GO BACK TO [place] Vitals Vital Signs Date Time Temp Pulse Resp B/P (MAP) Pulse Ox O2 Delivery O2 Flow Rate FiO2 11/20/16 15:31 97 Venturi Mask 15.0 11/20/16 15:00 98.6 61 24 110/72 (85) 98.6 General: Alert Lungs: Crackles Cardiovascular: S1, S2 Abdomen: Soft, Non-tender, Other (OBESE) Neuro Exam: Alert Extremities: Other (EDEMA) Skin: Warm Labs Laboratory Tests Test 11/18/16 16:41 11/18/16 20:52 11/19/16 08:17 11/19/16 11:39 Glucose (Fingerstick) 145 mg/dL (70-99) 111 mg/dL (70-99) 140 mg/dL (70-99) O2 Saturation 92 % (92-99) Arterial Blood pH 7.46 (7.35-7.45) Arterial Blood pCO2 at Patient Temp 70 mmHg (35-46) Arterial Blood pO2 at Patient Temp 65 mmHg (65-108) Arterial Blood HCO3 49 mmol/L (21-28) Arterial Blood Base Excess 21 mmol/L (-3-3) FiO2 40.0 Test 11/19/16 17:29 11/19/16 20:53 11/20/16 08:17 11/20/16 12:14 Glucose (Fingerstick) 130 mg/dL (70-99) 128 mg/dL (70-99) 150 mg/dL (70-99) 102 mg/dL (70-99) Laboratory Tests Test 11/19/16 17:29 11/19/16 20:53 11/20/16 08:17 11/20/16 12:14 Glucose (Fingerstick) 130 mg/dL (70-99) 128 mg/dL (70-99) 150 mg/dL (70-99) 102 mg/dL (70-99) Medications Active Scripts Medications Dose Route/Sig Max Daily Dose Days Date Category Atorvastatin Calcium 20 Mg Tablet 1 Tab PO DAILY 11/14/16 Reported Children's Aspirin (Aspirin) 81 Mg Tab.chew 81 Mg PO DAILY 11/14/16 Reported Milk Of Magnesia (Magnesium Hydroxide) 400 Mg/5 Ml Oral.susp 400 Mg PO PRN DAILY 11/14/16 Reported Miralax (Polyethylene Glycol 3350) 17 Gm Powd.pack 1 Packet PO PRN DAILY 11/14/16 Reported Lovenox (Enoxaparin Sodium) 40 Mg/0.4 Ml Disp.syrin 40 Mg SQ DAILY 11/14/16 Reported Oxycodone Hcl 5 Mg Tablet 5 Mg PO PRN Q4HRS PRN 11/14/16 Reported Tamsulosin Hcl 0.4 Mg Cap.er.24h 1 Cap PO DAILY 11/14/16 Reported Multivitamins (Multivitamin) 1 Each Tablet 1 Tab PO DAILY 11/14/16 Reported Tylenol (Acetaminophen) 325 Mg Tablet 325-650 Mg PO PRN Q8HRS 11/14/16 Reported Donepezil Hcl 10 Mg Tablet 1 Tab PO DAILY 11/14/16 Reported Vitamin D3 (Cholecalciferol (Vitamin D3)) 1,000 Unit Tablet 1 Tab PO DAILY 11/14/16 Reported Calcium Antacid (Calcium Carbonate) 400 Mg Tab.chew 400 Mg PO TID 11/14/16 Reported Impression . 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 SPOKE PT IN PROCESS OF BEING EVALUATED FOR HOSPIC CONTINUE SUPPORT PROGNOSIS IS POOR WILL SIGN OFF NOLVIA MORALEZ MD Nov 20, 2016 15:52
--- NOTE | 2016-11-20 16:00 | PDOC2 ---
PALLIATIVE CARE Palliative Care Note Palliative Care Patient alert. On Venti-mask. [facility] here. They will not have [facility]ap available [facility] until 8pm Spoke with Jaki/. She is aware of plan to transport at 8pm.--[facility]. ANDERSON ROACH Nov 20, 2016 16:00
[2016-11-20] MEDS: ENOXAPARIN 40 MG/0.4 ML SYRINGE. SQ SCH (17:16)
[2016-11-20 20:06] VITALS: BP 86/52
== END 2016-11-20 20:55 | disposition hospice, inpatient (51) | DRG 291 ==
LOC: ER 16:44 → 2 SOUTH 18:30
PROVIDERS: ADMIT Internal Medicine; ATTEND Internal Medicine
PROC: 5A09457 Assistance with Respiratory Ventilation, 24-96 Consecutive Hours, Continuous Positive Airway Pressure (ICD-10-PCS; principal; 2016-11-16)
DX: I50.33 Acute on chronic diastolic (congestive) heart failure (principal); G93.41 Metabolic encephalopathy; J96.21 Acute and chronic respiratory failure with hypoxia; J96.22 Acute and chronic respiratory failure with hypercapnia; L89.93 Pressure ulcer of unspecified site, stage 3; N17.9 Acute kidney failure, unspecified; I13.0 Hypertensive heart and chronic kidney disease with heart failure and stage 1 through stage 4 chronic kidney disease, or unspecified chronic kidney disease; I47.2 Ventricular tachycardia; E44.0 Moderate protein-calorie malnutrition; E11.22 Type 2 diabetes mellitus with diabetic chronic kidney disease; E78.5 Hyperlipidemia, unspecified; H35.30 Unspecified macular degeneration; I25.10 Atherosclerotic heart disease of native coronary artery without angina pectoris; E53.8 Deficiency of other specified B group vitamins; D63.8 Anemia in other chronic diseases classified elsewhere; F32.9 Major depressive disorder, single episode, unspecified; F41.9 Anxiety disorder, unspecified; I27.2 Other secondary pulmonary hypertension; I48.2 Chronic atrial fibrillation; R00.1 Bradycardia, unspecified; J44.9 Chronic obstructive pulmonary disease, unspecified; M81.0 Age-related osteoporosis without current pathological fracture; N18.9 Chronic kidney disease, unspecified; N40.0 Benign prostatic hyperplasia without lower urinary tract symptoms; R13.10 Dysphagia, unspecified; Z66 Do not resuscitate; Z74.01 Bed confinement status; Z96.641 Presence of right artificial hip joint; Z88.0 Allergy status to penicillin; Z88.5 Allergy status to narcotic agent; Z98.49 Cataract extraction status, unspecified eye; Z79.899 Other long term (current) drug therapy; Z68.26 Body mass index [BMI] 26.0-26.9, adult
CPT/HCPCS: 36415; 36600; 71010; 73502; 73552; 80048; 80053; 80061; 82607; 82805; 82962; 83036; 83690; 83735; 83880; 84443; 84484; 85027; 85610; 93005; 93306; 94640; 94660; 94760; A6539; J1650; J1815; J1940; J3010; J7620; 92526; 92610; 97530; 99285-25